=== PATIENT | male | born 1955 | race African-American/Black ===

== ENCOUNTER 2017-11-16 07:24 | Inpatient (IN) | payer OTHER ==
[~2017-11-16] VITALS: Ht 172.7 cm; Wt 93.4 kg
[~2017-11-16 07:24] MED LIST: BP pill; KEFLEX500 MG ORAL; NORCO 5-325 TA1 EAC1 ORAL; UNOBMED; [UNRECOGNIZED DRUG - OTHER]
--- NOTE | 2017-11-16 07:43 | Emergency Room Report ---
History of Present Illness General Chief Complaint: Pain Source: Patient, EMS Present Illness HPI Patient presents with complaints of general weakness reports that over the past several days has felt increasingly weak and fatigued Has had difficulty ambulating he does get short of breath patient also complains of increased swelling in both of his legs Reports being seen by primary physician who told him he needs to be seen by web publisher patient is also somewhat of a poor historian asking him regarding diuretics he reports no however he does have medications that are diuretics Denies any vomiting or diarrhea he also reports a fall previously Denies any focal weakness Allergies: Coded Allergies: No Known Allergies (Unverified , 02/21/16) Patient History Past Medical History: see triage record Pertinent Family History: none Reviewed Nursing Documentation: PMH: Agreed; PSxH: Agreed Nursing Documentation-PMH Past Medical History: No History, Except For Hx Cardiac Problems: Yes Hx Hypertension: Yes Hx Asthma: Yes Review of Systems All Other Systems: negative except mentioned in HPI Physical Exam Vital Signs Date Time Temp Pulse Resp B/P (MAP) Pulse Ox O2 Delivery O2 Flow Rate FiO2 11/16/17 07:20 96.6 95 20 145/89 95 Room Air 96.6 Sp02 EP Interpretation: reviewed, normal General Appearance: no apparent distress Head: normocephalic, atraumatic Eyes: bilateral eye PERRL ENT: hearing grossly normal, normal pharynx, TMs + canals normal, uvula midline Neck: full range of motion, supple, no meningismus, no bony tend Respiratory: no rhonchi, no respiratory distress, no retraction, no accessory muscle use, crackles - Fine crackles bilaterally Cardiovascular #1: normal peripheral pulses, regular rate, rhythm, no gallop, no JVD, no murmur Gastrointestinal: normal bowel sounds, non tender, no mass, no organomegaly, no guarding, no pulsatile mass, no rebound, other - Small umbilical hernia Genitourinary: no CVA tenderness Musculoskeletal: normal inspection Neurologic: oriented x3, responsive, wash driller III-XII nml as tested, motor strength/ tone normal, sensory intact Psychiatric: mood/affect normal Skin: other - Patient has extensive edema bilaterally Lymphatic: no adenopathy Medical Decision Making Diagnostic Impression: Primary Impression: CHF (congestive heart failure) ER Course Patient is a fairly complex patient with multiple differential to consideration including but not limited to cardiac cardiopulmonary and vascular emergencies Patient had extensive blood work and imaging obtained X-ray does show evidence of pulmonary congestion Patient clinically also shows acute CHF At this time requiring further inpatient care Labs Test 11/16/17 07:52 11/17/17 06:10 11/17/17 17:45 White Blood Count 13.8 K/UL (4.8-10.8) 14.0 K/UL (4.8-10.8) Red Blood Count 4.78 M/UL (4.70-6.10) 4.51 M/UL (4.70-6.10) Hemoglobin 11.1 G/DL (14.2-18.0) 11.2 G/DL (14.2-18.0) Hematocrit 36.0 % (42.0-52.0) 33.5 % (42.0-52.0) Mean Corpuscular Volume 75 FL (80-99) 74 FL (80-99) Mean Corpuscular Hemoglobin 23.3 PG (27.0-31.0) 24.9 PG (27.0-31.0) Mean Corpuscular Hemoglobin Concent 30.9 G/DL (32.0-36.0) 33.4 G/DL (32.0-36.0) Red Cell Distribution Width 15.9 % (11.6-14.8) 15.4 % (11.6-14.8) Platelet Count 308 K/UL (150-450) 253 K/UL (150-450) Mean Platelet Volume 6.1 FL (6.5-10.1) 6.4 FL (6.5-10.1) Neutrophils (%) (Auto) 78.3 % (45.0-75.0) 75.8 % (45.0-75.0) Lymphocytes (%) (Auto) 13.1 % (20.0-45.0) 12.3 % (20.0-45.0) Monocytes (%) (Auto) 7.3 % (1.0-10.0) 11.0 % (1.0-10.0) Eosinophils (%) (Auto) 0.1 % (0.0-3.0) 0.0 % (0.0-3.0) Basophils (%) (Auto) 1.2 % (0.0-2.0) 0.9 % (0.0-2.0) Sodium Level 132 MMOL/L (136-145) 132 MMOL/L (136-145) Potassium Level 3.5 MMOL/L (3.5-5.1) 3.3 MMOL/L (3.5-5.1) Chloride Level 97 MMOL/L (98-107) 95 MMOL/L (98-107) Carbon Dioxide Level 26 MMOL/L (21-32) 22 MMOL/L (21-32) Anion Gap 9 mmol/L (5-15) 15 mmol/L (5-15) Blood Urea Nitrogen 20 mg/dL (7-18) 30 mg/dL (7-18) Creatinine 1.4 MG/DL (0.55-1.30) 1.5 MG/DL (0.55-1.30) Estimat Glomerular Filtration Rate > 60 mL/min (>60) 57.1 mL/min (>60) Glucose Level 121 MG/DL (74-106) 98 MG/DL (74-106) Calcium Level 10.0 MG/DL (8.5-10.1) 9.5 MG/DL (8.5-10.1) Total Bilirubin 1.0 MG/DL (0.2-1.0) 1.5 MG/DL (0.2-1.0) Aspartate Amino Transf (AST/SGOT) 13 U/L (15-37) 15 U/L (15-37) Alanine Aminotransferase (ALT/SGPT) 14 U/L (12-78) 10 U/L (12-78) Alkaline Phosphatase 67 U/L (46-116) 60 U/L (46-116) Total Creatine Kinase 69 U/L (26-308) Creatine Kinase MB < 0.5 NG/ML (0.0-3.6) Creatine Kinase MB Relative Index Troponin I 0.000 ng/mL (0.000-0.056) Pro-B-Type Natriuretic Peptide 450 pg/mL (0-125) 206 pg/mL (0-125) Total Protein 9.8 G/DL (6.4-8.2) 9.3 G/DL (6.4-8.2) Albumin 3.3 G/DL (3.4-5.0) 2.9 G/DL (3.4-5.0) Globulin 6.5 g/dL 6.4 g/dL Albumin/Globulin Ratio 0.5 (1.0-2.7) 0.5 (1.0-2.7) Lipase 80 U/L (73-393) Iron Level 14 ug/dL (50-175) Total Iron Binding Capacity 263 ug/dL (250-450) Percent Iron Saturation 5 % (15-50) Unsaturated Iron Binding 249 ug/dL (112-346) Direct Bilirubin 0.8 MG/DL (0.0-0.3) Triglycerides Level 66 MG/DL (30-150) Cholesterol Level 87 MG/DL (< 200) LDL Cholesterol 41 mg/dL (<100) HDL Cholesterol 47 MG/DL (40-60) Cholesterol/HDL Ratio 1.9 (3.3-4.4) Thyroid Stimulating Hormone (TSH) 1.391 uiU/mL (0.358-3.740) Urine Color Yellow Urine Appearance Slightly cloudy Urine pH 5 (4.5-8.0) Urine Specific [place] 1.010 (1.005-1.035) Urine Protein 2+ (NEGATIVE) Urine Glucose (UA) Negative (NEGATIVE) Urine Ketones Negative (NEGATIVE) Urine Occult Blood 1+ (NEGATIVE) Urine Nitrite Negative (NEGATIVE) Urine Bilirubin Negative (NEGATIVE) Urine Urobilinogen 8 MG/DL (0.0-1.0) Urine Leukocyte Esterase 2+ (NEGATIVE) Urine RBC 0-2 /HPF (0 - 0) Urine WBC 2-4 /HPF (0 - 0) Urine Squamous Epithelial Cells Occasional /LPF Urine Amorphous Sediment Few /LPF (NONE) Urine Bacteria Few /HPF (NONE) Rhythm Strip Diag. Results EP Interpretation: yes Rate: 76 Rhythm: NSR, no PVC's, no ectopy Chest X-Ray Diagnostic Results Chest X-Ray Diagnostic Results : Chest X-Ray Ordered: Yes # of Views/Limited/Complete: 1 View Indication: Chest Pain EP Interpretation: Yes Interpretation: no consolidation, no effusion Last Vital Signs Date Time Temp Pulse Resp B/P (MAP) Pulse Ox O2 Delivery O2 Flow Rate FiO2 11/16/17 07:20 96.6 95 20 145/89 95 Room Air 96.6 Status: improved Disposition: ADMITTED INPATIENT Condition: Serious Katty Calvert DO Nov 16, 2017 07:43
[2017-11-16] MEDS ORDERED: AMLODIPINE BESY10 MG ORAL (07:54)
[2017-11-16] MEDS ORDERED: FERROUS SULFAT325 MG ORAL (07:54)
[2017-11-16] MEDS ORDERED: HYDROCHLOROTHIA25 MG ORAL (07:54)
[2017-11-16] MEDS ORDERED: PRAVASTATIN SOD20 M1 ORAL (07:54)
[2017-11-16] MEDS ORDERED: BENAZEPRIL HCL40 MG ORAL (07:54)
[2017-11-16 07:57] VITALS: BP 149/87
[2017-11-16 08:13] LABS: BASOPHILS % (AUTO) 1.2 % (0.0-2.0); EOSINOPHILS % (AUTO) 0.1 % (0.0-3.0); HEMOGLOBIN 11.1 G/DL (14.2-18.0); LYMPHOCYTES % (AUTO) 13.1 % (20.0-45.0); MEAN CORPUSCULAR VOLUME 75 FL (80-99); MONOCYTES % (AUTO) 7.3 % (1.0-10.0); NEUTROPHILS % (AUTO) 78.3 % (45.0-75.0); PLATELET COUNT 308 K/UL (150-450); RED BLOOD COUNT 4.78 M/UL (4.70-6.10); RED CELL DISTRIBUTION WIDTH 15.9 % (11.6-14.8); WHITE BLOOD COUNT 13.8 K/UL (4.8-10.8)
[2017-11-16 08:26] LABS: ANION GAP 9 mmol/L (5-15); BLOOD UREA NITROGEN 20 mg/dL (7-18); CARBON DIOXIDE 26 MMOL/L (21-32); CHLORIDE 97 MMOL/L (98-107); CREATININE 1.4 MG/DL (0.55-1.30); POTASSIUM 3.5 MMOL/L (3.5-5.1); SODIUM 132 MMOL/L (136-145)
[2017-11-16 08:39] LABS: ALANINE AMINOTRANSFERASE 14 U/L (12-78); ALBUMIN 3.3 G/DL (3.4-5.0); ALBUMIN/GLOBULIN RATIO 0.5 (1.0-2.7); ALKALINE PHOSPHATASE 67 U/L (46-116); ASPARTATE AMINO TRANSFERASE 13 U/L (15-37); CKMB < 0.5 NG/ML (0.0-3.6); CREATINE KINASE 69 U/L (26-308)
--- NOTE | 2017-11-16 08:53 | Diagnostic Imaging Report ---
Indication: Dyspnea Technique: XRAY Chest 1v Comparison: None Findings: Low lung volumes. Question borderline cardiomegaly and mild pulmonary vascular congestion. No definite focal airspace consolidation no large pleural effusion, no pneumothorax. There is degenerative change of the spine. No acute osseous abnormality appreciated. Impression: Limited exam of the lung volumes. Question mild cardiomegaly and pulmonary vascular congestion. Correlate clinically. No definite focal consolidation.
[2017-11-16 09:30] VITALS: BP 147/81
[2017-11-16 10:22] VITALS: BP 140/80
[2017-11-16] MEDS ORDERED: Milk of Magnesia 30ml Ud ORAL PRN (11:15)
[2017-11-16] MEDS ORDERED: HydrALAZINE 25mg tab ORAL PRN (11:15)
[2017-11-16] MEDS: Aspirin EC 81mg tab ORAL SCH (11:49)
[2017-11-16] MEDS: Metoprolol 25mg tab ORAL SCH ×2 (11:49→20:55)
[2017-11-16 12:00] VITALS: BP 127/79
[2017-11-16 16:00] VITALS: BP 151/62
[2017-11-16 20:00] VITALS: BP 156/83
[2017-11-16] MEDS: Heparin 5000 units/ml inj SUBQ SCH (20:58)
[2017-11-16] MEDS ORDERED: Zolpidem 5mg tab ORAL PRN (21:00)
[2017-11-17] VITALS (7 sets, daily range): BP systolic 99–139; BP diastolic 68–76
--- NOTE | 2017-11-17 02:30 | History and Physical Report ---
DATE OF ADMISSION: 11/16/2017 REASON FOR ADMISSION: Congestive heart failure. HISTORY OF PRESENT ILLNESS: This is a 62-year-old male with a history of hypertensive heart disease with congestive heart failure, who has had several days of increasing weakness, fatigue, shortness of breath, and leg swelling. He has been referred to a federal district clerk by his primary care physician, but has yet to make that appointment. He has been on diuretics as an outpatient, but has not improved. He was seen in the emergency room and based on the results of his diagnostic workup and failed outpatient management, hospitalization was initiated. PAST MEDICAL HISTORY: Includes hypertension, asthma, congestive heart failure, and osteoarthritis. ALLERGIES: None. MEDICATIONS: Prior to admission, reviewed and reconciled. FAMILY HISTORY: Not remarkable. SOCIAL HISTORY: Denies current smoking, alcohol, or substance abuse. REVIEW OF SYSTEMS: A 10-point review of systems performed. All systems negative other than noted above. PHYSICAL EXAMINATION: VITAL SIGNS: Afebrile, blood pressure 145/89, pulse 95, and respirations 20. HEENT: Conjunctiva pink. Sclerae are anicteric. Oropharynx clear. NECK: Supple. Jugular venous pressure elevated. LUNGS: With diminished breath sounds and few rales. CARDIAC: Regular rhythm and rate. Normal S1, S2 with a fourth heart sound and a 1/6 systolic apical murmur. ABDOMEN: Soft, nontender. No ascites. EXTREMITIES: With 1+ dependent edema bilaterally. Good distal pulses. NEUROLOGIC: Nonfocal. LABORATORY AND DIAGNOSTIC DATA: White count 13.8, hemoglobin 11.1. Sodium 132, potassium 3.5, bicarbonate 26, BUN 20, and creatinine 1.4. Troponin 0. Pro-natriuretic peptide 450. Albumin 3.3. EKG with sinus rhythm and nonspecific ST-T wave changes. Chest x-ray, cardiomegaly and mild pulmonary venous congestion. IMPRESSION: 1. Acute diastolic congestive heart failure. 2. Hypertensive heart disease. 3. Protein-calorie malnutrition. 4. History of bronchospastic lung disease. 5. Chronic kidney disease. 6. Leukocytosis, microcytosis. PLAN: 1. Cardiac monitoring. 2. Serial troponins. 3. Diuresis. 4. Optimization of cardiovascular and antihypertensive regimen. 5. Anemia panel. 6. Thyroid panel. 7. DVT prophylaxis. 8. Echocardiogram and venous duplex scan of the lower extremities. 9. Further recommendations will follow. Sunny Sharif M.D. DR: DONNA JOB#: [id number] CC:
[2017-11-17 07:20] LABS: BASOPHILS % (AUTO) 0.9 % (0.0-2.0); HEMATOCRIT 33.5 % (42.0-52.0); HEMOGLOBIN 11.2 G/DL (14.2-18.0); LYMPHOCYTES % (AUTO) 12.3 % (20.0-45.0); MEAN CORPUSCULAR VOLUME 74 FL (80-99); NEUTROPHILS % (AUTO) 75.8 % (45.0-75.0); PLATELET COUNT 253 K/UL (150-450); RED BLOOD COUNT 4.51 M/UL (4.70-6.10); RED CELL DISTRIBUTION WIDTH 15.4 % (11.6-14.8)
[2017-11-17 07:38] LABS: % IRON SATURATION 5 % (15-50); IRON 14 ug/dL (50-175); TOTAL IRON BINDING CAPACITY 263 ug/dL (250-450)
[2017-11-17 07:45] LABS: ALANINE AMINOTRANSFERASE 10 U/L (12-78); ALBUMIN 2.9 G/DL (3.4-5.0); ALBUMIN/GLOBULIN RATIO 0.5 (1.0-2.7); ALKALINE PHOSPHATASE 60 U/L (46-116); ANION GAP 15 mmol/L (5-15); ASPARTATE AMINO TRANSFERASE 15 U/L (15-37); BILIRUBIN,TOTAL 1.5 MG/DL (0.2-1.0); BLOOD UREA NITROGEN 30 mg/dL (7-18); CALCIUM 9.5 MG/DL (8.5-10.1); CARBON DIOXIDE 22 MMOL/L (21-32); CHLORIDE 95 MMOL/L (98-107); CHOLESTEROL 87 MG/DL (< 200); CREATININE 1.5 MG/DL (0.55-1.30); HDL CHOLESTEROL 47 MG/DL (40-60); POTASSIUM 3.3 MMOL/L (3.5-5.1); SODIUM 132 MMOL/L (136-145); TRIGLYCERIDES 66 MG/DL (30-150)
[2017-11-17 07:48] LABS: BILIRUBIN,DIRECT 0.8 MG/DL (0.0-0.3)
[2017-11-17] MEDS: Aspirin EC 81mg tab ORAL SCH (09:11)
[2017-11-17] MEDS: Metoprolol 25mg tab ORAL SCH ×2 (09:12→21:09)
[2017-11-17] MEDS: Heparin 5000 units/ml inj SUBQ SCH ×2 (09:14→21:13)
--- NOTE | 2017-11-17 10:29 | Diagnostic Imaging Report ---
Indication: Shortness of breath Technique: XRAY Chest 1v Comparison: 11/16/2017 Findings: Cardiomediastinal silhouette is stable. Atherosclerotic changes are seen. No new infiltrates are identified. Osseous structures are stable. Impression: No significant change from 11/16/2017.
[2017-11-17 18:00] LABS: BILIRUBIN, URINE NEGATIVE (NEGATIVE); GLUCOSE, URINE (UA) NEGATIVE (NEGATIVE); KETONES,URINE NEGATIVE (NEGATIVE); LEUKOCYTE ESTERASE ,URINE 2+ (NEGATIVE); NITRITE,URINE NEGATIVE (NEGATIVE); PH,URINE 5 (4.5-8.0); PROTEIN,URINE 2+ (NEGATIVE); UROBILINOGEN,URINE 8 MG/DL (0.0-1.0)
[2017-11-17 18:01] LABS: APPEARANCE,URINE SLIGHTLY CLOUDY; COLOR,URINE YELLOW
--- NOTE | 2017-11-17 20:15 | Progress Note ---
DATE: 11/17/2017 CARDIOLOGY AND INTERNAL MEDICINE PROGRESS NOTE SUBJECTIVE: The patient has no chest pain or shortness of breath. He notes some improvement in his legs swelling, but still feels his hands are swollen. He denies cough or congestion. He has had a low-grade fever. He does not note any change in bowel habits. OBJECTIVE: VITAL SIGNS: Blood pressure 111/68, pulse 78, respirations 18, and temperature 99.5. Earlier, blood pressure was 99/73 and oxygen saturation 96% to 98% on room air. NECK: Supple. No jugular venous distention. LUNGS: With few rales, but significantly clear. CARDIAC: Regular rhythm and rate. Normal S1, S2 with a fourth heart sound. ABDOMEN: Slightly distended, soft, and nontender. EXTREMITIES: No edema. LABORATORY DATA: Notable for sodium 132, potassium 3.3, BUN 30, and creatinine 1.5. Total iron is 14 with saturation 5%. Albumin 2.9. LDL cholesterol 41 and TSH 1.3. White count remains 14 and hemoglobin 11.2. Chest x-ray today reveals no acute process. IMPRESSION: 1. Low-grade fever with leukocytosis, but no obvious source of infection. 2. Severe iron deficiency with no signs of gastrointestinal bleeding. 3. Acute on chronic diastolic congestive heart failure, now compensated with BNP decreasing to 209. 4. Hypertensive heart disease now with lower range blood pressure readings. PLAN: 1. Hold additional diuretic. 2. Check urine studies. 3. Check stool occult blood. 4. Consider GI workup. 5. For further fever spikes, blood cultures will be obtained. 6. Not stable for discharge at this time. Sunny Sharif M.D. DR: DAVID JOB#: [id number] CC:
[2017-11-18] VITALS: BP 107/66
[2017-11-18 04:00] VITALS: BP 104/63
[2017-11-18 08:00] VITALS: BP 112/73
[2017-11-18] MEDS: Aspirin EC 81mg tab ORAL SCH (08:51)
[2017-11-18] MEDS: Metoprolol 25mg tab ORAL SCH ×2 (08:53→20:52)
[2017-11-18] MEDS: Heparin 5000 units/ml inj SUBQ SCH (08:56)
[2017-11-18 08:59] LABS: BASOPHILS % (AUTO) 0.7 % (0.0-2.0); EOSINOPHILS % (AUTO) 0.2 % (0.0-3.0); HEMATOCRIT 32.9 % (42.0-52.0); HEMOGLOBIN 10.4 G/DL (14.2-18.0); LYMPHOCYTES % (AUTO) 12.5 % (20.0-45.0); MEAN CORPUSCULAR VOLUME 75 FL (80-99); MONOCYTES % (AUTO) 11.4 % (1.0-10.0); NEUTROPHILS % (AUTO) 75.3 % (45.0-75.0); PLATELET COUNT 259 K/UL (150-450); RED BLOOD COUNT 4.39 M/UL (4.70-6.10); RED CELL DISTRIBUTION WIDTH 15.5 % (11.6-14.8); WHITE BLOOD COUNT 12.3 K/UL (4.8-10.8)
[2017-11-18 09:37] LABS: ANION GAP 14 mmol/L (5-15); BLOOD UREA NITROGEN 35 mg/dL (7-18); CALCIUM 9.5 MG/DL (8.5-10.1); CARBON DIOXIDE 24 MMOL/L (21-32); CHLORIDE 95 MMOL/L (98-107); CREATININE 1.6 MG/DL (0.55-1.30); POTASSIUM 3.3 MMOL/L (3.5-5.1); SODIUM 133 MMOL/L (136-145)
[2017-11-18 12:00] VITALS: BP 117/75
[2017-11-18 16:00] VITALS: BP 121/76
[2017-11-18] MEDS ORDERED: Heparin 25,000u/D5W 500ml 500 ML IV SCH ×2 (16:30)
[2017-11-18] MEDS ORDERED: Heparin 5000 units/ml inj IV SCH (16:30)
[2017-11-18] MEDS ORDERED: Sorbitol Solution UD 30ml ORAL ONE (17:00)
[2017-11-18 20:00] VITALS: BP 98/60
--- NOTE | 2017-11-18 20:15 | Progress Note ---
DATE: 11/18/2017 CARDIOLOGY AND INTERNAL MEDICINE PROGRESS NOTE SUBJECTIVE: The patient still has some shortness of breath, poor appetite, and weakness. A venous duplex scan was positive for acute DVT. REVIEW OF SYSTEMS: The patient states that he had a colonoscopy at least seven years ago. OBJECTIVE: VITAL SIGNS: Blood pressure 121/76, pulse 84, respirations 20, afebrile, and room air oxygen 95% to 99% saturation. LUNGS: Coarse breath sounds. No wheezing or rales. HEART: Regular rhythm and rate. Normal S1 and S2. ABDOMEN: Soft. EXTREMITIES: Trace edema. LABORATORY AND DIAGNOSTIC DATA: White count 12.3 and hemoglobin 10.4. Sodium 133, potassium 3.3, bicarbonate 24, BUN 35, creatinine 1.6, and magnesium 1.5. IMPRESSION: 1. Acute deep venous thrombosis, possible pulmonary embolism. 2. Hypokalemia. 3. Hyponatremia, dilutional. 4. Acute on chronic kidney injury worsening post diuresis. 5. Iron deficiency. 6. Microcytic anemia. 7. Moderate protein-calorie malnutrition. 8. Acute on chronic diastolic congestive heart failure, now compensated. 9. Hypomagnesemia. PLAN: 1. Full anticoagulation. 2. Bed rest. 3. GI evaluation for panendoscopy. 4. Iron replacement to follow. 5. Protein supplements. 6. Holding diuresis. 7. Respiratory hygiene. 8. Follow up stool occult blood test. Sunny Sharif M.D. DR: Tawana JOB#: [id number] CC:
[2017-11-18] MEDS ORDERED: Heparin 5000 units/ml inj IV ONE (23:30)
[2017-11-18] MEDS: Heparin 25,000u/D5W 500ml 500 ML IV SCH (23:49)
[2017-11-19] VITALS: BP 95/59
[2017-11-19 04:00] VITALS: BP 138/72
[2017-11-19] MEDS ORDERED: Bisacodyl EC 5mg tab ORAL SCH (06:00)
[2017-11-19 06:08] LABS: BASOPHILS % (AUTO) 0.9 % (0.0-2.0); EOSINOPHILS % (AUTO) 0.8 % (0.0-3.0); HEMATOCRIT 31.7 % (42.0-52.0); HEMOGLOBIN 10.7 G/DL (14.2-18.0); LYMPHOCYTES % (AUTO) 12.9 % (20.0-45.0); MEAN CORPUSCULAR VOLUME 74 FL (80-99); NEUTROPHILS % (AUTO) 77.5 % (45.0-75.0); PLATELET COUNT 237 K/UL (150-450); RED BLOOD COUNT 4.28 M/UL (4.70-6.10); RED CELL DISTRIBUTION WIDTH 15.4 % (11.6-14.8); WHITE BLOOD COUNT 9.8 K/UL (4.8-10.8)
[2017-11-19] MEDS: Heparin 25,000u/D5W 500ml 500 ML IV SCH (06:56)
[2017-11-19 08:00] VITALS: BP 101/64
[2017-11-19] MEDS ORDERED: Nulytely 4L ORAL ONE (08:00)
[2017-11-19] MEDS: Metoprolol 25mg tab ORAL SCH ×2 (09:17→21:51)
[2017-11-19] MEDS: Aspirin EC 81mg tab ORAL SCH (09:17)
[2017-11-19 09:47] LABS: ALANINE AMINOTRANSFERASE 20 U/L (12-78); ALBUMIN 2.5 G/DL (3.4-5.0); ALBUMIN/GLOBULIN RATIO 0.5 (1.0-2.7); ALKALINE PHOSPHATASE 67 U/L (46-116); ANION GAP 16 mmol/L (5-15); ASPARTATE AMINO TRANSFERASE 34 U/L (15-37); BILIRUBIN,TOTAL 0.7 MG/DL (0.2-1.0); BLOOD UREA NITROGEN 43 mg/dL (7-18); CALCIUM 8.9 MG/DL (8.5-10.1); CARBON DIOXIDE 21 MMOL/L (21-32); CHLORIDE 93 MMOL/L (98-107); CREATININE 1.5 MG/DL (0.55-1.30); POTASSIUM 3.4 MMOL/L (3.5-5.1); SODIUM 130 MMOL/L (136-145)
--- NOTE | 2017-11-19 09:51 | Cardiology Report ---
APPROVED REPORT EXAM: Two-dimensional and M-mode echocardiogram with Doppler and color Doppler. INDICATION Congestive Heart Failure M-Mode DIMENSIONS IVSd1.0 (0.7-1.1cm)Left Atrium (MM)4.0 (1.6-4.0cm) LVDd3.8 (3.5-5.6cm)Aortic Root3.3 (2.0-3.7cm) PWd0.7 (0.7-1.1cm)Aortic Cusp Exc.1.9 (1.5-2.0cm) LVDs1.7 (2.5-4.0cm) PWs1.8 cm Technically difficult study due to poor parasternal acoustical windows. Study quality precludes accurate assessment of regional wall motion. Normal left ventricular chamber size, systolic function and wall motion. Left ventricular ejection fraction estimated to be 60 %. No evidence of left ventricular hypertrophy. Anterior Echo-free space, may be due to pericardial fat or effusion. All other cardiac chamber sizes are within normal limits. Mild focal aortic valve sclerosis with adequate cusp excursion. Mildly thickened mitral valve leaflets with normal excursion. Mild mitral annulus and aortic root calcification. Pulmonic valve not well visualized. Normal tricuspid valve structure. IVC dilated at 2.2 cm and non-collapsing with respiration suggestive of increased RA pressure. A color flow and spectral Doppler study was performed and revealed: Mild to moderate aortic insufficiency. Trace mitral regurgitation. Mitral diastolic velocities suggest mild left ventricular diastolic dysfunction (Grade I). Trace tricuspid regurgitation. Tricuspid systolic velocities suggests peak right ventricular systolic pressure of 32 mmHg. No pulmonic regurgitation present.
[2017-11-19 12:00] VITALS: BP 121/84
--- NOTE | 2017-11-19 13:00 | Progress Note ---
DATE: 11/19/2017 CARDIOLOGY PROGRESS NOTE SUBJECTIVE: The patient feels better, less short of breath. No chest pain. No abdominal pain, nausea, or vomiting. PHYSICAL EXAMINATION: VITAL SIGNS: Blood pressure 101/64, pulse 90, respirations 20, and afebrile. NECK: Supple. LUNGS: Clear. CARDIAC: Regular rhythm and rate. Normal S1, S2 with a fourth heart sound. ABDOMEN: Soft. EXTREMITIES: No edema. LABORATORY DATA: Sodium 130, potassium 3.4, chloride 92, bicarb 21, BUN 43, and creatinine 1.5. Magnesium 2.2. Albumin 2.5. IMPRESSION: 1. Acute DVT. 2. Severe iron deficiency with anemia. 3. Hyponatremia. 4. Hypokalemia. 5. Hypochloremia. 6. Acute on chronic kidney injury. 7. Tfekeyys-js-tgccde protein-calorie malnutrition. 8. Acute on chronic diastolic congestive heart failure, now compensated. PLAN: IV heparin. all drips and normal saline. Fluid restrict. Replace potassium. Bed rest. Panendoscopy schedule. Iron replacement to follow. Sunny Sharif M.D. DR: LINETTE JOB#: [id number] CC:
[2017-11-19 16:00] VITALS: BP 109/71
[2017-11-19] MEDS ORDERED: Sorbitol Solution UD 30ml ORAL SCH ×2 (17:45→21:00)
[2017-11-19 20:00] VITALS: BP 114/72
--- NOTE | 2017-11-19 20:51 | General Progress Note ---
Assessment/Plan Assessment/Plan GI CONSULT ATSP for anemia Dictated Will arrange for EGD/Colon in am Thank you Noni Schwartz MD Subjective Allergies: Coded Allergies: No Known Allergies (Unverified , 02/21/16) Objective Last 24 Hour Vital Signs Date Time Temp Pulse Resp B/P (MAP) Pulse Ox O2 Delivery O2 Flow Rate FiO2 11/19/17 16:00 89 11/19/17 16:00 99.3 88 18 109/71 96 Room Air 99.3 11/19/17 12:00 97.0 100 19 121/84 95 Room Air 97.0 11/19/17 12:00 71 11/19/17 09:17 90 101/64 11/19/17 09:00 101/64 11/19/17 08:00 97.7 90 18 101/64 94 Room Air 97.7 11/19/17 08:00 90 11/19/17 04:00 93 11/19/17 04:00 98.4 69 20 138/72 95 Room Air 98.4 11/19/17 01:45 98.6 11/19/17 00:46 98.6 11/19/17 00:00 99.7 92 22 95/59 98 Room Air 99.7 11/19/17 00:00 96 11/18/17 20:52 92 98/60 Intake and Output 11/18/17 11/19/17 19:00 07:00 Intake Total 400 ml 500 ml Output Total 2 ml Balance 400 ml 498 ml Intake Oral 400 ml 500 ml Stool Total 2 ml Laboratory Tests 11/18/17 22:10: Activated Partial Thromboplast Time 59H 11/19/17 05:30: Activated Partial Thromboplast Time 83H, White Blood Count 9.8, Red Blood Count 4.28L, Hemoglobin 10.7L, Hematocrit 31.7L, Mean Corpuscular Volume 74L, Mean Corpuscular Hemoglobin 24.9L, Mean Corpuscular Hemoglobin Concent 33.7, Red Cell Distribution Width 15.4H, Platelet Count 237, Mean Platelet Volume 6.3L, Neutrophils (%) (Auto) 77.5H, Lymphocytes (%) (Auto) 12.9L, Monocytes (%) (Auto ) 8.0, Eosinophils (%) (Auto) 0.8, Basophils (%) (Auto) 0.9, Sodium Level 130L, Potassium Level 3.4L, Chloride Level 93L, Carbon Dioxide Level 21, Anion Gap 16H , Blood Urea Nitrogen 43H, Creatinine 1.5H, Estimat Glomerular Filtration Rate 57.1, Glucose Level 118H, Calcium Level 8.9, Magnesium Level 2.2, Total Bilirubin 0.7, Aspartate Amino Transf (AST/SGOT) 34, Alanine Aminotransferase ( ALT/SGPT) 20, Alkaline Phosphatase 67, Total Protein 8.0, Albumin 2.5L, Globulin 5.5, Albumin/Globulin Ratio 0.5L Height (Feet): 5 Height (Inches): 8.00 Weight (Pounds): 210 LETY SCHWARTZ Nov 19, 2017 20:51
[2017-11-19] MEDS ORDERED: Lactulose 20gm/30ml UDC ORAL SCH (21:30)
[2017-11-20] VITALS (12 sets, daily range): BP systolic 68–113; BP diastolic 47–74
[2017-11-20] MEDS ORDERED: Sorbitol Solution UD 30ml ORAL SCH
[2017-11-20] MEDS ORDERED: Lactulose 20gm/30ml UDC ORAL SCH
--- NOTE | 2017-11-20 01:15 | Consultation ---
DATE OF CONSULTATION: 11/19/2017 GASTROENTEROLOGY CONSULTATION CONSULTING PHYSICIAN: Nydia Schwartz M.D. REFERRING PHYSICIAN: Sunny Sharif M.D. CHIEF COMPLAINT: I was asked to see this patient by Dr. Sunny Sharif for evaluation of severe anemia. HISTORY OF PRESENT ILLNESS: The patient is a pleasant 62-year-old man with history of hypertension and hypertensive heart disease, who came into the hospital due to fatigue, weakness, and shortness of breath. Evaluation as an inpatient has shown severe anemia which is microcytic and therefore, this consultation was generated. The patient states that his last colonoscopy was about six to seven years ago and he is not sure where it was done. He denies any abdominal pain, nausea, vomiting, diarrhea, constipation, or hematochezia. Family history is negative for gastrointestinal disorders or malignancies. PAST MEDICAL HISTORY: Remarkable for congestive heart failure, hypertension, asthma, and osteoarthritis. MEDICATIONS: See the chart list for details. ALLERGIES: None. SOCIAL HISTORY: The patient does not smoke or drink alcohol. FAMILY HISTORY: Negative. REVIEW OF SYSTEMS: Otherwise negative. PHYSICAL EXAMINATION: GENERAL: This is a pleasant man, seen in his room. HEENT: Normocephalic and atraumatic. Sclerae anicteric. Oropharynx clear. NECK: Supple. CHEST: Clear to auscultation. CARDIOVASCULAR: Regular rate. ABDOMEN: Soft with a supraumbilical nodule which was mildly tender and resembled the intraabdominal wall hernia. EXTREMITIES: Revealed no edema. LABORATORY DATA: Noted. ASSESSMENT: This patient presents with significant anemia of unclear etiology. Differential diagnosis would include chronic blood loss either from the upper or lower GI tract. In addition, the patient has some mild elevation in bilirubin which has improved now. With a CT scan, we can check both the gallbladder and liver area as well as the anterior abdominal wall and this can be done after the completion of the GI endoscopy procedure. RECOMMENDATIONS: 1. Begin GI tract lavage. 2. Endoscopy and colonoscopy tomorrow. 3. CT scan to follow to check the anterior abdominal wall hernia as well as to check the biliary tree. Thank you for asking me to participate in the care of this patient. Nydia Schwartz M.D. DR: José JOB#: [id number] CC: JEREMIAH
[2017-11-20] MEDS ORDERED: NS 500ML IV ONE (07:50)
[2017-11-20] MEDS ORDERED: Propofol 200mg/20ml IV ONE (08:00)
[2017-11-20] MEDS ORDERED: NS 500ML ONE (08:00)
--- NOTE | 2017-11-20 08:11 | General Progress Note ---
Assessment/Plan Assessment/Plan Assessment - Microcytic anemia - N/V with GI preparation - DVT - off heparin gtt overnight - likely anterior abd wall hernia Recommendations - NPO - EGD, possible colonoscopy this am - monitor labs - Heparin on hold POST PROCEDURE ADDENDUM EGD: - 800 cc residual bilious liquid removed from stomach - 3-4 cm Hiatal hernia - proximal gastritis - random biopsies of duodenum and fundus sent to path - no ulcer or malignancy identified Flexible sigmoidoscopy - exam to 40 cm without mass lesions - diverticulosis seen - poor preparation precluded full colonoscopy Recommendations - keep NPO - Restart Heparin - CT scan Subjective HEENT: Denies: double vision Allergies: Coded Allergies: No Known Allergies (Unverified , 02/21/16) Subjective above noted unable to tolerate golytely due to vomiting given sorbitol and lactulose refused enema this am initially refused going down to GI lab then later agreed to proceed understands stools not clear - may not be able to do colon Objective Last 24 Hour Vital Signs Date Time Temp Pulse Resp B/P (MAP) Pulse Ox O2 Delivery O2 Flow Rate FiO2 11/20/17 04:00 97.0 85 20 96/56 97 Room Air 97.0 11/20/17 03:47 97 11/20/17 00:00 98.2 98 20 98/63 97 Room Air 98.2 11/19/17 23:40 96 11/19/17 21:51 102 114/72 11/19/17 20:00 99.0 102 18 114/72 96 Room Air 99.0 11/19/17 19:40 102 11/19/17 16:00 89 11/19/17 16:00 99.3 88 18 109/71 96 Room Air 99.3 11/19/17 12:00 97.0 100 19 121/84 95 Room Air 97.0 11/19/17 12:00 71 11/19/17 09:17 90 101/64 11/19/17 09:00 101/64 Intake and Output 11/19/17 11/20/17 19:00 07:00 Intake Total 590.218 ml Output Total 1000 ml Balance 590.218 ml -1000 ml Intake Oral 250 ml IV Total 340.218 ml Emesis 1000 ml # Voids 2 1 # Bowel Movements 1 Laboratory Tests 11/20/17 04:00: Activated Partial Thromboplast Time 32 Height (Feet): 5 Height (Inches): 8.00 Weight (Pounds): 210 Objective WDWN NCAT CTA RRR Soft obese stomach, (+) softer periumbilical nodule no edema nonfocal LETY WIGGINS Nov 20, 2017 08:11
--- NOTE | 2017-11-20 08:18 | Anethesia Preoperative Eval ---
Anesthesia Pre-op PMH/ROS General Date of Evaluation: Nov 20, 2017 Time of Evaluation: 07:50 Anesthesiologist: Lucia ASA Score: ASA 3 Mallampati Score Class I : Soft palate, uvula, fauces, pillars visible Class II: Soft palate, uvula, fauces visible Class III: Soft palate, base of uvula visible Class IV: Only hard plate visible Mallampati Classification: Class II Surgeon: Lana Diagnosis: Abdominal pain, GI bleed Surgical Procedure: EGD, colonoscopy Family History: no anesthesia problems Allergies: Coded Allergies: No Known Allergies (Unverified , 02/21/16) Medications: see eMAR Past Medical History Cardiovascular: Reports: HTN, CAD, other - CHF Pulmonary: Reports: asthma; Denies: COPD, CHONG, other Gastrointestinal/Genitourinary: Reports: CRI; Denies: GERD, ESRD, other Neurologic/Psychiatric: Denies: dementia, CVA, depression/anxiety, TIA, other Endocrine: Denies: DM, hypothyroidism, steroids, other HEENT: Denies: cataract (L), cataract (R), glaucoma, [place] (L), [place] (R), other Hematology/Immune: Reports: anemia, DVT Musculoskeletal/Integumentary: Reports: OA PMH Narrative: HTN, CHF, diastolic dysfunction, bronchospasm, OA, CRI Anesthesia Pre-op Phys. Exam Physician Exam Last Vital Signs Date Time Temp Pulse Resp B/P (MAP) Pulse Ox O2 Delivery O2 Flow Rate FiO2 11/20/17 04:00 97.0 85 20 96/56 97 Room Air 97.0 Constitutional: NAD Neurologic: CN 2-12 intact Cardiovascular: RRR, no M/R/G Respiratory: CTA Gastrointestinal: S/NT/ND Airway Exam Mallampati Score: Class II MO: full ROM: full Teeth: missing Anesthesia Pre-op A/P Labs Coagulation Test 11/20/17 04:00 Activated Partial Thromboplast Time 32 SEC (23-33) Studies Pre-op Studies: EKG - Sinus tach, possible IWMI Risk Assessment & Plan Assessment: Class 3 male for EGD and colonoscopy Plan: GA, TIVA Status Change Before Surgery: No Pre-Antibiotics Drug: None Stevan Myers MD Nov 20, 2017 08:18
--- NOTE | 2017-11-20 08:19 | Immediate Post-Op Evaluation ---
Immediate Post-Op Evalulation Immediate Post-Op Evalulation Procedure: EGD, colonoscopy Date of Evaluation: Nov 20, 2017 Time of Evaluation: 08:57 IV Fluids: 400 Blood Pressure Systolic: 78 Blood Pressure Diastolic: 52 Pulse Rate: 103 Respiratory Rate: 17 O2 Sat by Pulse Oximetry: 100 Pain Score (1-10): 0 Nausea: No Vomiting: No Complications No complication Patient Status: awake, patent, none Hydration Status: adequate Stevan Myers MD Nov 20, 2017 08:19
[2017-11-20] MEDS ORDERED: fentaNYL 100 mcg/2 mL IV PRN (08:30)
[2017-11-20] MEDS: Metoprolol 25mg tab ORAL SCH ×2 (09:00→22:24)
[2017-11-20] MEDS: Pantoprazole Inj IVP SCH (10:20)
[2017-11-20] MEDS: Aspirin EC 81mg tab ORAL SCH (10:20)
[2017-11-20] MEDS: D5 1/2NS 1,000 ML IV SCH (10:21)
[2017-11-20] MEDS ORDERED: Heparin 25,000u/D5W 500ml 500 ML IV SCH (11:00)
--- NOTE | 2017-11-20 15:54 | Diagnostic Imaging Report ---
Indication: Abdominal tenderness and abdominal pain Technique: Spiral acquisitions obtained through the abdomen and pelvis. Patient given oral contrast. No IV contrast utilized, per referring physician request.. Multiplanar reconstructions were generated. Total dose length product 911.51 mGycm. CTDIvol(s) 17.73 mGy. Dose reduction achieved using automated exposure control Comparison: None Findings: There is diffuse mild to moderate dilatation of the small bowel, which is gas and fluid filled. The narrowing extends to the terminal ileum, where there is a focal narrowing of the terminal ileum with suggestion of a slight kink and slight swirling of the mesentery. Ingested contrast has traversed only a small percentage of the stomach and proximal small bowel. The appendix is normal. The colon is gas and fluid filled, upper limits of normal in caliber but not frankly distended proximally, nondistended distal to the splenic flexure. What appears to be scar tissue is seen in the left inguinal region. There is a small fat-containing umbilical hernia., As well as a small fat-containing ventral hernia cephalad to the umbilicus. There is colonic diverticulosis. No evidence of diverticulitis. The appendix is normal. No free or loculated intraperitoneal air or fluid is evident. Lack of IV contrast limits assessment of the solid organs. The liver is grossly unremarkable. The gallbladder is nondistended, contains a gallstone within the fundus. No biliary ductal dilatation. A few calcifications are seen in the pancreatic head. The spleen, adrenals, kidneys are unremarkable. No retroperitoneal or mesenteric mass or adenopathy. No pelvic mass or adenopathy. The bladder is nondistended. Reticular opacities are seen in the inferior lingula. An irregular nodular opacity with surrounding groundglass opacity is seen in the left lower lobe, measuring approximately 2 cm in diameter. The bones demonstrate a wedge/burst compression fracture deformity of the L1 vertebral body, with approximately 6 mm of posterior retropulsion of the superior aspect of the posterior wall and approximately 60% height loss. There is also a superior endplate compression fracture deformity of the L2 vertebral body. The bones demonstrate degenerative spondylosis changes. Impression: Dilated fluid-filled small bowel, extending all way to the terminal ileum. Kinking and narrowing of the terminal ileum just proximal to the ileocecal valve is suspicious for small bowel obstruction at the level of the terminal ileum, possibly due to an adhesion or less likely a tiny internal hernia. Given the diffuse involvement of the small bowel other than the last few centimeters, findings could also be due to ileus, however Gas and fluid filled nondistended colon. Reportedly, patient has history of recent colonoscopy, so this finding could be related to such Colonic diverticulosis. No evidence of diverticulitis 2 cm irregular nodular opacity with surrounding groundglass opacity in the left lower lobe. This could be postinflammatory, but does raise the possibility of pulmonary neoplasm. Follow-up chest CT is recommended Other reticular opacities seen within the inferior lingula, could be postinflammatory or could indicate acute inflammation L1 wedge/burst compression fracture deformity with posterior retropulsion. Age of this is indeterminate. Consider MRI for further evaluation if symptomatic L2 vertebral body superior endplate compression fracture deformity, likewise age indeterminate. Consider MRI if indicated Cholelithiasis Incidental findings degenerative lumbar spondylosis, small fat-containing ventral and umbilical hernias Critical value findings discussed by phone with Dr. Sharif at the time of interpretation The CT scanner at [facility] is accredited by the [employer] and the scans are performed using protocols designed to limit radiation exposure to as low as reasonably achievable to attain images of sufficient resolution adequate for diagnostic evaluation.
[2017-11-20] MEDS ORDERED: D5 1/2NS 1000ml IV ONE (17:39)
[2017-11-20] MEDS ORDERED: Heparin 5000 units/ml inj IV SCH (17:45)
[2017-11-20] MEDS: Heparin 25,000u/D5W 500ml 500 ML IV SCH ×2 (18:20→21:25)
--- NOTE | 2017-11-20 18:23 | Consultation ---
History of Present Illness General Date patient seen: Nov 20, 2017 Chief Complaint: Pain Reason for Consultation: abdominal pain/n/v, ileus vs sbo Present Illness HPI 62 year old male with multiple medical comorbidities as noted below presented with worsening condition and CHF. Since has been doing well but began to develop abdominal discomfort with nausea and emesis. States pain generalized abdominal cramping discomfort that began today and began to have bilious emesis this morning. Had EGD with evacuation of 800cc bilious fluid, no ulcer noted, small hiatal hernia noted. After had CT scan which demonstrated mild to moderate small bowel dilation with "swirl"/ transition at distal Terminal ileum suggestive of bowel obstruction vs ileus. Surgery called to evaluate. patient seen, chart reviewed, patient examined. no prior abdominal surgery Allergies: Coded Allergies: No Known Allergies (Unverified , 02/21/16) Medication History Scheduled Amlodipine Besylate* (Amlodipine Besylate*), 10 MG ORAL DAILY, (Reported) Benazepril Hcl* (Benazepril Hcl*), 40 MG ORAL DAILY, (Reported) Cephalexin* (Keflex*), 500 MG ORAL EVERY 6 HOURS Ferrous Sulfate* (Ferrous Sulfate*), 325 MG ORAL DAILY, (Reported) Hydrochlorothiazide* (Hydrochlorothiazide*), 25 MG ORAL DAILY, (Reported) Pravastatin Sod* (Pravastatin Sod*), 40 MG ORAL BEDTIME, (Reported) Scheduled PRN Hydrocodone Bit/Acetaminophen 5-325* (Felton 5-325 Tablet*), 1 TAB ORAL Q4H PRN for For Pain Miscellaneous Medications Unable to Obtain Medications (Unable To Obtain Meds), (Reported) [BP pill], (Reported) [asthma medicine], (Reported) Patient History History Provided By: Patient, Medical Record, PMD Healthcare decision maker Resuscitation status Full Code Advanced Directive on File No Past Medical/Surgical History Past Medical/Surgical History: (1) Ileus (2) Shoulder pain, right (3) Proximal humeral fracture (4) UTI (urinary tract infection) (5) Compression fracture (6) CHF (congestive heart failure) Review of Systems All Other Systems: negative except mentioned in HPI Physical Exam General Appearance: no apparent distress, alert Lines, tubes and drains: peripheral HEENT: normocephalic, mucous membranes moist Neck: normal inspection Respiratory/Chest: normal breath sounds, no respiratory distress, no accessory muscle use Cardiovascular/Chest: normal peripheral pulses Abdomen: soft, distended, tender, hernia, other - soft, distended, mild generalized tenderness, no rebound, no guarding, reducible umbilial hernia, no notable inguinal hernia Skin Exam: normal pigmentation Neurologic: alert, oriented x 3, responsive Last 24 Hour Vital Signs Date Time Temp Pulse Resp B/P (MAP) Pulse Ox O2 Delivery O2 Flow Rate FiO2 11/20/17 16:00 87 11/20/17 16:00 97.5 86 20 113/74 97 Room Air 97.5 11/20/17 15:56 97.0 11/20/17 12:00 87 11/20/17 12:00 97.0 82 20 99/65 97 Room Air 97.0 11/20/17 10:57 44 11/20/17 09:55 97.0 84 20 95/53 97 Room Air 97.0 11/20/17 09:29 97.8 90 25 99/62 97 Room Air 97.8 11/20/17 09:15 89 24 94/59 96 Room Air 11/20/17 09:05 98 27 89/62 98 Room Air 11/20/17 09:00 102 27 87/57 100 Simple Mask 6.0 11/20/17 09:00 95/53 11/20/17 09:00 84 95/53 11/20/17 09:00 17 100 11/20/17 08:55 98 27 77/52 100 Simple Mask 6.0 11/20/17 08:47 98.0 94 25 68/47 100 Simple Mask 6.0 98.0 11/20/17 08:00 89 11/20/17 04:00 97.0 85 20 96/56 97 Room Air 97.0 11/20/17 03:47 97 11/20/17 00:00 98.2 98 20 98/63 97 Room Air 98.2 11/19/17 23:40 96 11/19/17 21:51 102 114/72 11/19/17 20:00 99.0 102 18 114/72 96 Room Air 99.0 11/19/17 19:40 102 Intake and Output 11/19/17 11/20/17 19:00 07:00 Intake Total 590.218 ml Output Total 1000 ml Balance 590.218 ml -1000 ml Intake Oral 250 ml IV Total 340.218 ml Emesis 1000 ml # Voids 2 1 # Bowel Movements 1 Laboratory Tests Test 11/20/17 04:00 11/20/17 17:00 Activated Partial Thromboplast Time 32 SEC (23-33) 50 SEC (23-33) H Height (Feet): 5 Height (Inches): 8.00 Weight (Pounds): 211 Medications Current Medications Medications (Trade) Dose Ordered Sig/Edi Route PRN Reason Start Time Stop Time Status Last Admin Dose Admin Acetaminophen (Tylenol) 650 mg Q4H PRN ORAL Mild Pain/Temp > 100.5 11/16/17 11:15 12/16/17 11:14 11/20/17 15:56 Aspirin (Ecotrin) 81 mg DAILY ORAL 11/16/17 11:15 12/16/17 11:14 11/20/17 10:20 Benazepril HCl (Lotensin) 40 mg DAILY ORAL 11/16/17 11:30 12/16/17 11:29 11/18/17 08:52 Dextrose/Sodium Chloride 1,000 ml @ 75 mls/hr [id number] IV 11/20/17 09:00 12/20/17 08:59 11/20/17 10:21 Heparin Sodium/ Dextrose 500 ml @ 45.363 mls/ hr adjust per protocol IV 11/20/17 17:45 12/20/17 17:44 Hydralazine HCl (Apresoline) 25 mg Q6H PRN ORAL SBP above 160 11/16/17 11:15 12/16/17 11:14 Magnesium Hydroxide (Mom) 30 ml DAILYPRN PRN ORAL Constipation 11/16/17 11:15 12/16/17 11:14 Metoprolol Tartrate (Lopressor) 25 mg Q12HR ORAL 11/16/17 11:30 12/16/17 11:29 11/19/17 21:51 Pantoprazole (Protonix) 40 mg DAILY IVP 11/20/17 09:00 12/20/17 08:59 11/20/17 10:20 Pravastatin Sodium (Pravachol) 40 mg BEDTIME ORAL 11/16/17 21:00 12/16/17 20:59 11/19/17 21:51 Zolpidem Tartrate (Ambien) 5 mg HSPRN PRN ORAL Insomnia 11/16/17 21:00 11/23/17 20:59 Assessment/Plan Problem List: (1) Ileus Assessment & Plan: 62 year old male with ileus vs SBO. afebrile, HD stable, labs reviewed. CT as noted in HPI. Exam as above. fortunately currently stable. possible ileus but concerning radiographic imaging of swirl and transition point near terminal ileus. patient with virgin abdomen. Will start with conservative management and monitor closely NPO with IV fluids NG tube inserted at bedside AM KUB serial abdominal exams. if does not improve may need surgery. will follow with recs. thank you for this consultation. ICD Codes: K56.7 - Ileus, unspecified SNOMED: [id number] Status: stable Jg Guy Nov 20, 2017 18:23
--- NOTE | 2017-11-20 18:30 | Procedure Note ---
DATE OF PROCEDURE: 11/20/2017 GASTROENTEROLOGY PROCEDURE REPORT PROCEDURE: Upper gastrointestinal endoscopy with biopsy as well as attempted colonoscopy resulting in a flexible sigmoidoscopy. SURGEON: Nydia Schwartz M.D. ANESTHESIA: Please see the separate anesthesiologist notes for details. PRE-ENDOSCOPIC DIAGNOSIS: Microcytic anemia. POST-ENDOSCOPIC DIAGNOSES: 1. Significant gastric residual of clear bilious fluid amounting up to about 800 mL, which was aspirated. 2. 3 to 4 cm hiatal hernia. 3. Possible mildly erosive gastritis in the fundus of the stomach, status post biopsy. 4. Status post random biopsy of the duodenum. 5. Poor colonic preparation precluding advancement beyond 40 cm, which was estimated to be the descending colon. DESCRIPTION OF PROCEDURE: The procedure, its risks, indications, alternatives, and possible complications including, but not limited to bleeding, infection, perforation, , and anesthesia complications were explained to the patient and an informed consent was obtained. The diagnostic upper endoscope was introduced into the oropharynx and advanced to the duodenum. The gastric cavity was noted to be filled with a thin bilious liquid, which was aspirated. After completion of that procedure, the colonoscope was introduced into the rectum after rectal exam was done and advanced to approximately 40 cm. At this point, poor colonic preparation precluded further advancement. Examination findings were as listed above. Most notably, there was no evidence of malignancy or masses or ulcerations or any other abnormalities that would explain the patient's microcytic anemia. RECOMMENDATIONS: 1. Follow up biopsy results. 2. Keep the patient NPO. 3. IV fluids. 4. Proton pump inhibitor. 5. CT Scan of the abdomen and pelvis. Thank you for asking me to participate in the care of this patient. Nydia Schwartz M.D. DR: LUCINDA JOB#: [id number] CC:
[2017-11-21] VITALS: BP 98/54
[2017-11-21] MEDS: D5 1/2NS 1,000 ML IV SCH ×2 (00:15→11:46)
--- NOTE | 2017-11-21 02:00 | Progress Note ---
DATE: 11/20/2017 CARDIOLOGY AND INTERNAL MEDICINE PROGRESS NOTE SUBJECTIVE: The patient's condition has deteriorated. He underwent upper GI endoscopy and was found to have gastric residual and hiatal hernia with gastritis. A colonoscopy could not be performed due to poor colonic prep and difficult advancement beyond 40 cm. The patient was noted to have some signs of small bowel obstruction and possible small bowel mass at the region of the terminal ileum. OBJECTIVE: LUNGS: With diminished breath sounds. CARDIAC: Regular rhythm and rate. Normal S1, S2. ABDOMEN: Soft. EXTREMITIES: No edema. IMPRESSION: 1. Iron-deficiency anemia. 2. Acute deep venous thrombosis. 3. Bowel obstruction. 4. Possible obstructing mass. PLAN: NPO. IV fluids. Hold anticoagulation for now pending stated diagnostic workup and possible surgical intervention. Bed rest. Sunny Sharif M.D. DR: Sommer JOB#: [id number] CC:
[2017-11-21] MEDS: Heparin 25,000u/D5W 500ml 500 ML IV SCH ×2 (02:42→13:49)
[2017-11-21 04:00] VITALS: BP 130/70
[2017-11-21 08:02] VITALS: BP_SYST 117; BP_SYST 120; BP_DIAS 70
[2017-11-21] MEDS: Metoprolol 25mg tab ORAL SCH ×2 (08:25→20:37)
[2017-11-21] MEDS: Pantoprazole Inj IVP SCH (08:25)
--- NOTE | 2017-11-21 08:50 | Diagnostic Imaging Report ---
. Indication: NG tube placement Technique: Portable supine view of the abdomen Comparison: CT abdomen 11/20/2013 FINDINGS/IMPRESSION: 1. NG tube courses along the upper aspect of the abdomen, likely within the stomach. Correlate with clinical exam. If there is clinical concern for malpositioning recommend tube advancement and repeat imaging, as the tube skirts along the along the undersurface of the cardiomediastinal silhouette. 2. Numerous dilated air-filled small bowel and large bowel loops concerning for ileus or degree of small bowel obstruction, similar to findings of prior CT. 3. Calcified gallstone noted in the right upper quadrant, similar to findings of prior CT. 4. Degenerative changes of the spine with age indeterminate vertebral body compression fractures, also previously described. This corresponds with the statrad preliminary report.
[2017-11-21 09:07] LABS: BASOPHILS % (AUTO) 1.3 % (0.0-2.0); EOSINOPHILS % (AUTO) 2.1 % (0.0-3.0); HEMATOCRIT 32.7 % (42.0-52.0); HEMOGLOBIN 10.3 G/DL (14.2-18.0); LYMPHOCYTES % (AUTO) 13.9 % (20.0-45.0); MEAN CORPUSCULAR VOLUME 73 FL (80-99); MONOCYTES % (AUTO) 11.5 % (1.0-10.0); NEUTROPHILS % (AUTO) 71.2 % (45.0-75.0); PLATELET COUNT 246 K/UL (150-450); RED BLOOD COUNT 4.46 M/UL (4.70-6.10); RED CELL DISTRIBUTION WIDTH 15.2 % (11.6-14.8); WHITE BLOOD COUNT 8.7 K/UL (4.8-10.8)
[2017-11-21 09:26] LABS: ALANINE AMINOTRANSFERASE 17 U/L (12-78); ALBUMIN 2.7 G/DL (3.4-5.0); ALBUMIN/GLOBULIN RATIO 0.4 (1.0-2.7); ALKALINE PHOSPHATASE 69 U/L (46-116); ANION GAP 16 mmol/L (5-15); ASPARTATE AMINO TRANSFERASE 24 U/L (15-37); BILIRUBIN,TOTAL 0.7 MG/DL (0.2-1.0); BLOOD UREA NITROGEN 61 mg/dL (7-18); CALCIUM 9.1 MG/DL (8.5-10.1); CARBON DIOXIDE 23 MMOL/L (21-32); CHLORIDE 91 MMOL/L (98-107); CREATININE 2.6 MG/DL (0.55-1.30); POTASSIUM 2.8 MMOL/L (3.5-5.1); SODIUM 129 MMOL/L (136-145)
--- NOTE | 2017-11-21 11:52 | Diagnostic Imaging Report ---
Indication: Abdominal pain Technique: Portable supine views of the abdomen Comparison: Abdominal radiograph and CT of the abdomen 11/16/2013. Findings: Nasogastric tube tip likely coiled in the proximal stomach. Limited evaluation for free intraperitoneal air given lack of erect view. No definite evidence of free intraperitoneal air. Number and degree of distention of small bowel loops is slightly decreased compared to the prior exam. No acute osseous abnormality is seen. There is atelectasis in the lung bases. IMPRESSION: Dilated air-filled small and large bowel loops persists, although number and degree of distention of loops is slightly decreased compared to the prior exam.
[2017-11-21 11:53] VITALS: BP 105/91
--- NOTE | 2017-11-21 14:39 | General Surgery Progress Note ---
General Surgery-Progress Note Subjective Symptoms: improved Additional Comments feels somewhat better. no n/v. ng tube output minimal. passing flatus and had some loose BM today. Objective Last 24 Hour Vital Signs Date Time Temp Pulse Resp B/P (MAP) Pulse Ox O2 Delivery O2 Flow Rate FiO2 11/21/17 11:53 97.2 74 18 105/91 97 Room Air 97.2 11/21/17 11:34 76 11/21/17 08:25 80 117/70 11/21/17 08:24 117/70 11/21/17 08:03 86 11/21/17 08:02 97.2 80 18 117/70 97 Room Air 97.2 11/21/17 04:00 81 11/21/17 04:00 97.2 72 18 130/70 97 Room Air 97.2 11/21/17 00:00 86 11/21/17 00:00 97.2 90 17 98/54 94 Room Air 97.2 11/20/17 22:24 96 104/62 11/20/17 21:00 98.1 96 20 104/62 95 Room Air 98.1 11/20/17 20:00 98 11/20/17 16:00 87 11/20/17 16:00 97.5 86 20 113/74 97 Room Air 97.5 11/20/17 15:56 97.0 I&O Intake and Output 11/20/17 11/21/17 19:00 07:00 Intake Total 1275 ml 1303.392 ml Output Total 800 ml 225 ml Balance 475 ml 1078.392 ml IV Total 1275 ml 1303.392 ml Gastric Drainage Total 225 ml Emesis 800 ml # Voids 2 2 # Bowel Movements 1 Drains: none Cardiovascular: RSR Respiratory: clear Abdomen: soft, distended, non-tender Extremities: no cyanosis Laboratory Tests Test 11/20/17 17:00 11/21/17 00:20 11/21/17 08:50 Activated Partial Thromboplast Time 50 SEC (23-33) H > 150 SEC (23-33) *H 92 SEC (23-33) H White Blood Count 8.7 K/UL (4.8-10.8) Red Blood Count 4.46 M/UL (4.70-6.10) L Hemoglobin 10.3 G/DL (14.2-18.0) L Hematocrit 32.7 % (42.0-52.0) L Mean Corpuscular Volume 73 FL (80-99) L Mean Corpuscular Hemoglobin 23.2 PG (27.0-31.0) L Mean Corpuscular Hemoglobin Concent 31.7 G/DL (32.0-36.0) L Red Cell Distribution Width 15.2 % (11.6-14.8) H Platelet Count 246 K/UL (150-450) Mean Platelet Volume 7.1 FL (6.5-10.1) Neutrophils (%) (Auto) 71.2 % (45.0-75.0) Lymphocytes (%) (Auto) 13.9 % (20.0-45.0) L Monocytes (%) (Auto) 11.5 % (1.0-10.0) H Eosinophils (%) (Auto) 2.1 % (0.0-3.0) Basophils (%) (Auto) 1.3 % (0.0-2.0) Sodium Level 129 MMOL/L (136-145) L Potassium Level 2.8 MMOL/L (3.5-5.1) L Chloride Level 91 MMOL/L (98-107) L Carbon Dioxide Level 23 MMOL/L (21-32) Anion Gap 16 mmol/L (5-15) H Blood Urea Nitrogen 61 mg/dL (7-18) H Creatinine 2.6 MG/DL (0.55-1.30) H Estimat Glomerular Filtration Rate 30.3 mL/min (>60) Glucose Level 117 MG/DL (74-106) H Lactic Acid Level 2.00 mmol/L (0.66-2.22) Calcium Level 9.1 MG/DL (8.5-10.1) Total Bilirubin 0.7 MG/DL (0.2-1.0) Aspartate Amino Transf (AST/SGOT) 24 U/L (15-37) Alanine Aminotransferase (ALT/SGPT) 17 U/L (12-78) Alkaline Phosphatase 69 U/L (46-116) Total Protein 9.3 G/DL (6.4-8.2) H Albumin 2.7 G/DL (3.4-5.0) L Globulin 6.6 g/dL Albumin/Globulin Ratio 0.4 (1.0-2.7) L Plan Problems: (1) Ileus Assessment & Plan: 62 year old male with ileus vs SBO. afebrile, HD stable, labs reviewed. CT as noted in HPI. Exam as above. fortunately currently stable. possible ileus but concerning radiographic imaging of swirl and transition point near terminal ileus. patient with virgin abdomen. improved this AM. flatus and loose BM. exam less firm. minimal NG tube output NG tube removed. will cont current management. NPO with IV fluids serial abdominal exams. if does not improve may need surgery. will follow with recs. thank you for this consultation. Jg Guy Nov 21, 2017 14:39
[2017-11-21 16:36] VITALS: BP 117/72
[2017-11-21] MEDS ORDERED: Sterile Water For Irrig 2000ml IRRIG ONE (18:19)
[2017-11-21] MEDS ORDERED: D5 1/2NS 1000ml IV ONE (18:19)
--- NOTE | 2017-11-21 19:44 | General Progress Note ---
Assessment/Plan Assessment/Plan Assessment - Microcytic anemia - N/V - ileus vs distal SBO - DVT - HH - Diverticulosis Recommendations - NPO - surgical f/u - follow exam Subjective Allergies: Coded Allergies: No Known Allergies (Unverified , 02/21/16) Subjective above noted seen early AM had NGT at that time no vomiting CT noted Objective Last 24 Hour Vital Signs Date Time Temp Pulse Resp B/P (MAP) Pulse Ox O2 Delivery O2 Flow Rate FiO2 11/21/17 16:36 97.2 80 18 117/72 97 Room Air 97.2 11/21/17 15:25 85 11/21/17 11:53 97.2 74 18 105/91 97 Room Air 97.2 11/21/17 11:34 76 11/21/17 08:25 80 117/70 11/21/17 08:24 117/70 11/21/17 08:03 86 11/21/17 08:02 97.2 80 18 117/70 97 Room Air 97.2 11/21/17 04:00 81 11/21/17 04:00 97.2 72 18 130/70 97 Room Air 97.2 11/21/17 00:00 86 11/21/17 00:00 97.2 90 17 98/54 94 Room Air 97.2 11/20/17 22:24 96 104/62 11/20/17 21:00 98.1 96 20 104/62 95 Room Air 98.1 11/20/17 20:00 98 Intake and Output 11/20/17 11/21/17 19:00 07:00 Intake Total 1275 ml 1341.194 ml Output Total 800 ml 225 ml Balance 475 ml 1116.194 ml IV Total 1275 ml 1341.194 ml Gastric Drainage Total 225 ml Emesis 800 ml # Voids 2 2 # Bowel Movements 1 Laboratory Tests 11/21/17 00:20: Activated Partial Thromboplast Time > 150*H 11/21/17 08:50: Activated Partial Thromboplast Time 92H, White Blood Count 8.7, Red Blood Count 4.46L, Hemoglobin 10.3L, Hematocrit 32.7L, Mean Corpuscular Volume 73L, Mean Corpuscular Hemoglobin 23.2L, Mean Corpuscular Hemoglobin Concent 31.7L, Red Cell Distribution Width 15.2H, Platelet Count 246, Mean Platelet Volume 7.1, Neutrophils (%) (Auto) 71.2, Lymphocytes (%) (Auto) 13.9L, Monocytes (%) (Auto) 11.5H, Eosinophils (%) (Auto) 2.1, Basophils (%) (Auto) 1.3, Sodium Level 129L, Potassium Level 2.8L, Chloride Level 91L, Carbon Dioxide Level 23, Anion Gap 16H , Blood Urea Nitrogen 61H, Creatinine 2.6H, Estimat Glomerular Filtration Rate 30.3, Glucose Level 117H, Lactic Acid Level 2.00, Calcium Level 9.1, Total Bilirubin 0.7, Aspartate Amino Transf (AST/SGOT) 24, Alanine Aminotransferase ( ALT/SGPT) 17, Alkaline Phosphatase 69, Total Protein 9.3H, Albumin 2.7L, Globulin 6.6, Albumin/Globulin Ratio 0.4L Height (Feet): 5 Height (Inches): 8.00 Weight (Pounds): 212 Objective WDWN NCAT CTA RRR Soft obese less distended no edema nonfocal LETY WIGGINS Nov 21, 2017 19:44
[2017-11-21 20:00] VITALS: BP 128/79
--- NOTE | 2017-11-21 21:02 | Pre-Procedure Note/Attestation ---
Pre-Procedure Note/Attestation Complete Prior to Procedure Planned Procedure: not applicable Procedure Narrative: EGD/Colon Indications for Procedure Pre-Operative Diagnosis: anemia Attestation I attest that I discussed the nature of the procedure; its benefits; risks and complications; and alternatives (and the risks and benefits of such alternatives ), prior to the procedure, with the patient (or the patient's legal eligibility services representative). I attest that, if there was a reasonable possibility of needing a blood transfusion, the patient (or the patient's legal eligibility services representative) was given the [facility] standardized written summary, pursuant to the Stevan [place]oy Blood Safety Act ([place] Health and Safety Code # 1645, as amended). I attest that I re-evaluated the patient just prior to the surgery and that there has been no change in the patient's H&P, except as documented below: LETY WIGGINS Nov 21, 2017 21:02
--- NOTE | 2017-11-21 21:03 | Endoscopy Procedure Note ---
Endoscopy Procedure Note General Indication for Procedure: anemia Procedures Performed: flexible sigmoidoscopy, EGD Operative Findings/Diagnosis: r/o SBO Specimen: yes Pt Tolerated Procedure Well: Yes Estimated Blood Loss: none Anesthesia Anesthesiologist: see report Anesthesia: moderate sedation Medications Medication Given: see anesthesia record Inserted Devices Implant(s) used?: No GI Core Measures 50 yrs or older w/o bx or poly: Not Applicable 10yrs. F/U not recommended: Not Applicable If not recommended, why?: LETY WIGGINS Nov 21, 2017 21:03
--- NOTE | 2017-11-21 21:04 | Brief Operative Note ---
Immediate Post Operative Note Operative Note Chief Complaint: anemia Pre-op Diagnosis: anemia Procedure: EGD flex sig Post-op Diagnosis: 1. Significant gastric residual of clear bilious fluid amounting up to about 800 mL, which was aspirated. 2. 3 to 4 cm hiatal hernia. 3. Possible mildly erosive gastritis in the fundus of the stomach, status post biopsy. 4. Status post random biopsy of the duodenum. 5. Poor colonic preparation precluding advancement beyond 40 cm, which was estimated to be the descending colon. Surgeon: jena Anesthesiologist: see report Anesthesia: MAC Specimen: yes Complications: none Condition: stable Fluids: recorded Estimated Blood Loss: none Drains: none Implant(s) used?: No LETY WIGGINS Nov 21, 2017 21:04
[2017-11-22] VITALS (8 sets, daily range): BP systolic 106–125; BP diastolic 65–80
[2017-11-22] MEDS: D5 1/2NS 1,000 ML IV SCH (01:00)
[2017-11-22] MEDS: D5NS w/KCl 40mEq 1000ml 1,000 ML IV SCH ×3 (03:37→23:06)
[2017-11-22] MEDS: Heparin 25,000u/D5W 500ml 500 ML IV SCH ×3 (03:37→21:18)
--- NOTE | 2017-11-22 05:15 | Progress Note ---
DATE: 11/21/2017 INTERNAL MEDICINE PROGRESS NOTE SUBJECTIVE: The patient has some gas passing today with minimal stool that was loose. He still has an NG tube in place. OBJECTIVE: VITAL SIGNS: Blood pressure 117/72, pulse 80, and respiratory rate 18. LUNGS: Clear. CARDIAC: Regular. Normal S1, S2. ABDOMEN: Slightly distended, but soft. No edema. LABORATORY AND DIAGNOSTIC DATA: White count 8.7, hemoglobin 10.3. Potassium 2.8, sodium 129, BUN 61, creatinine 2.6. Lactic acid is 2. property assessment monitor, sinus with nonsustained ventricular tachycardia. IMPRESSION: 1. Ileus. 2. Partial small bowel obstruction. 3. Iron deficiency anemia. 4. Acute deep venous thrombosis of lower extremity. 5. Acute renal failure. 6. Hypokalemia. 7. Hyponatremia. 8. Resolved lactic acidosis. PLAN: 1. Adjust intravenous fluids. 2. Replace potassium. 3. NPO. 4. Await further gastrointestinal and surgical interventions. 5. May need diagnostic studies of remaining colon. 6. Intravenous iron. 7. Full anticoagulation with IV heparin continuing at this time. 8. Cardiac monitoring. 9. Recheck magnesium level. Sunny Sharif M.D. DR: GABRIELA JOB#: [id number] CC:
--- NOTE | 2017-11-22 08:52 | General Progress Note ---
Assessment/Plan Assessment/Plan Assessment - Microcytic anemia - N/V - ileus vs distal SBO - DVT - HH - Diverticulosis Recommendations - diet per surgery - surgical f/u - follow exam - would benefit from SBFT once improved Subjective Allergies: Coded Allergies: No Known Allergies (Unverified , 02/21/16) Subjective above noted NGT out some flatus no vomiting Objective Last 24 Hour Vital Signs Date Time Temp Pulse Resp B/P (MAP) Pulse Ox O2 Delivery O2 Flow Rate FiO2 11/22/17 05:53 86 18 110/68 97 Room Air 11/22/17 04:00 98.1 81 20 118/65 98 Room Air 98.1 11/22/17 04:00 76 11/22/17 00:15 82 18 122/76 97 Room Air 11/22/17 00:00 71 11/22/17 00:00 97.0 71 20 124/77 98 Room Air 97.0 11/21/17 20:37 78 127/70 11/21/17 20:00 85 11/21/17 20:00 98.5 85 20 128/79 98 Room Air 98.5 11/21/17 20:00 85 11/21/17 16:36 97.2 80 18 117/72 97 Room Air 97.2 11/21/17 15:25 85 11/21/17 11:53 97.2 74 18 105/91 97 Room Air 97.2 11/21/17 11:34 76 Intake and Output 11/21/17 11/22/17 19:00 07:00 Intake Total 1203.624 ml 1040.218 ml Balance 1203.624 ml 1040.218 ml IV Total 1203.624 ml 1040.218 ml # Voids 3 2 # Bowel Movements 1 Laboratory Tests 11/21/17 08:50: White Blood Count 8.7, Red Blood Count 4.46L, Hemoglobin 10.3L, Hematocrit 32.7L , Mean Corpuscular Volume 73L, Mean Corpuscular Hemoglobin 23.2L, Mean Corpuscular Hemoglobin Concent 31.7L, Red Cell Distribution Width 15.2H, Platelet Count 246, Mean Platelet Volume 7.1, Neutrophils (%) (Auto) 71.2, Lymphocytes (%) (Auto) 13.9L, Monocytes (%) (Auto) 11.5H, Eosinophils (%) (Auto ) 2.1, Basophils (%) (Auto) 1.3, Activated Partial Thromboplast Time 92H, Sodium Level 129L, Potassium Level 2.8L, Chloride Level 91L, Carbon Dioxide Level 23, Anion Gap 16H, Blood Urea Nitrogen 61H, Creatinine 2.6H, Estimat Glomerular Filtration Rate 30.3, Glucose Level 117H, Lactic Acid Level 2.00, Calcium Level 9.1, Total Bilirubin 0.7, Aspartate Amino Transf (AST/SGOT) 24, Alanine Aminotransferase (ALT/SGPT) 17, Alkaline Phosphatase 69, Total Protein 9.3H, Albumin 2.7L, Globulin 6.6, Albumin/Globulin Ratio 0.4L Height (Feet): 5 Height (Inches): 8.00 Weight (Pounds): 209 Objective WDWN NCAT CTA RRR Soft obese, mod distended no edema nonfocal LETY WIGGINS Nov 22, 2017 08:52
[2017-11-22] MEDS: Pantoprazole Inj IVP SCH (09:10)
[2017-11-22] MEDS: Metoprolol 25mg tab ORAL SCH ×2 (09:11→21:19)
[2017-11-22 12:10] LABS: BASOPHILS % (AUTO) 1.5 % (0.0-2.0); EOSINOPHILS % (AUTO) 1.9 % (0.0-3.0); HEMOGLOBIN 11.2 G/DL (14.2-18.0); LYMPHOCYTES % (AUTO) 15.3 % (20.0-45.0); MEAN CORPUSCULAR VOLUME 75 FL (80-99); MONOCYTES % (AUTO) 8.1 % (1.0-10.0); NEUTROPHILS % (AUTO) 73.2 % (45.0-75.0); PLATELET COUNT 293 K/UL (150-450); RED BLOOD COUNT 4.81 M/UL (4.70-6.10); RED CELL DISTRIBUTION WIDTH 15.5 % (11.6-14.8); WHITE BLOOD COUNT 9.4 K/UL (4.8-10.8)
[2017-11-22] MEDS ORDERED: Heparin 5000 units/ml inj IV SCH (12:45)
[2017-11-22 12:51] LABS: ALANINE AMINOTRANSFERASE 21 U/L (12-78); ALBUMIN/GLOBULIN RATIO 0.4 (1.0-2.7); ALKALINE PHOSPHATASE 80 U/L (46-116); ANION GAP 12 mmol/L (5-15); ASPARTATE AMINO TRANSFERASE 22 U/L (15-37); BILIRUBIN,TOTAL 0.5 MG/DL (0.2-1.0); BLOOD UREA NITROGEN 34 mg/dL (7-18); CALCIUM 9.9 MG/DL (8.5-10.1); CARBON DIOXIDE 24 MMOL/L (21-32); CHLORIDE 97 MMOL/L (98-107); CREATININE 1.3 MG/DL (0.55-1.30); POTASSIUM 3.4 MMOL/L (3.5-5.1); SODIUM 133 MMOL/L (136-145)
--- NOTE | 2017-11-22 15:28 | General Surgery Progress Note ---
General Surgery-Progress Note Subjective Symptoms: improved, pain absent, passing flatus, BM Additional Comments doing well. no n/v/f/c. comfortable. passing lots of flatus and had loose BM' s. Objective Last 24 Hour Vital Signs Date Time Temp Pulse Resp B/P (MAP) Pulse Ox O2 Delivery O2 Flow Rate FiO2 11/22/17 12:00 70 11/22/17 12:00 97.5 71 21 117/78 98 Room Air 97.5 11/22/17 09:11 125/79 11/22/17 09:11 81 125/79 11/22/17 08:00 88 11/22/17 08:00 98.2 81 20 125/79 98 Room Air 98.2 11/22/17 05:53 86 18 110/68 97 Room Air 11/22/17 04:00 98.1 81 20 118/65 98 Room Air 98.1 11/22/17 04:00 76 11/22/17 00:15 82 18 122/76 97 Room Air 11/22/17 00:00 71 11/22/17 00:00 97.0 71 20 124/77 98 Room Air 97.0 11/21/17 20:37 78 127/70 11/21/17 20:00 85 11/21/17 20:00 98.5 85 20 128/79 98 Room Air 98.5 11/21/17 20:00 85 11/21/17 16:36 97.2 80 18 117/72 97 Room Air 97.2 I&O Intake and Output 11/21/17 11/22/17 19:00 07:00 Intake Total 1203.624 ml 1040.218 ml Balance 1203.624 ml 1040.218 ml IV Total 1203.624 ml 1040.218 ml # Voids 3 2 # Bowel Movements 1 Cardiovascular: RSR Respiratory: clear Abdomen: soft, distended, non-tender, present bowel sounds Extremities: no edema, no tenderness, no cyanosis Laboratory Tests Test 11/22/17 11:30 White Blood Count 9.4 K/UL (4.8-10.8) Red Blood Count 4.81 M/UL (4.70-6.10) Hemoglobin 11.2 G/DL (14.2-18.0) L Hematocrit 36.0 % (42.0-52.0) L Mean Corpuscular Volume 75 FL (80-99) L Mean Corpuscular Hemoglobin 23.4 PG (27.0-31.0) L Mean Corpuscular Hemoglobin Concent 31.3 G/DL (32.0-36.0) L Red Cell Distribution Width 15.5 % (11.6-14.8) H Platelet Count 293 K/UL (150-450) Mean Platelet Volume 6.3 FL (6.5-10.1) L Neutrophils (%) (Auto) 73.2 % (45.0-75.0) Lymphocytes (%) (Auto) 15.3 % (20.0-45.0) L Monocytes (%) (Auto) 8.1 % (1.0-10.0) Eosinophils (%) (Auto) 1.9 % (0.0-3.0) Basophils (%) (Auto) 1.5 % (0.0-2.0) Activated Partial Thromboplast Time 52 SEC (23-33) H Sodium Level 133 MMOL/L (136-145) L Potassium Level 3.4 MMOL/L (3.5-5.1) L Chloride Level 97 MMOL/L (98-107) L Carbon Dioxide Level 24 MMOL/L (21-32) Anion Gap 12 mmol/L (5-15) Blood Urea Nitrogen 34 mg/dL (7-18) H Creatinine 1.3 MG/DL (0.55-1.30) Estimat Glomerular Filtration Rate > 60 mL/min (>60) Glucose Level 102 MG/DL (74-106) Calcium Level 9.9 MG/DL (8.5-10.1) Magnesium Level 2.2 MG/DL (1.8-2.4) Total Bilirubin 0.5 MG/DL (0.2-1.0) Aspartate Amino Transf (AST/SGOT) 22 U/L (15-37) Alanine Aminotransferase (ALT/SGPT) 21 U/L (12-78) Alkaline Phosphatase 80 U/L (46-116) Total Protein 10.2 G/DL (6.4-8.2) H Albumin 3.0 G/DL (3.4-5.0) L Globulin 7.2 g/dL Albumin/Globulin Ratio 0.4 (1.0-2.7) L Plan Problems: (1) Ileus Assessment & Plan: 62 year old male with ileus vs SBO. afebrile, HD stable, labs reviewed. CT as noted in HPI. Exam as above. fortunately currently stable. possible ileus but concerning radiographic imaging of swirl and transition point near terminal ileus. patient with virgin abdomen. seems as if he has had return of bowel function. possible just enteritis with ileus which is resolving. start trial clear liquids agree with GI about SBFT will follow with recs. thank you for this consultation. Jg Guy Nov 22, 2017 15:28
[2017-11-23] VITALS: BP 118/76
[2017-11-23] MEDS: Heparin 25,000u/D5W 500ml 500 ML IV SCH (07:19)
[2017-11-23 08:00] VITALS: BP 117/76
[2017-11-23] MEDS: Metoprolol 25mg tab ORAL SCH ×2 (09:00→21:01)
[2017-11-23] MEDS: Pantoprazole Inj IVP SCH (09:00)
[2017-11-23] MEDS: D5NS w/KCl 40mEq 1000ml 1,000 ML IV SCH ×2 (11:45→19:02)
[2017-11-23 12:00] VITALS: BP 127/79
--- NOTE | 2017-11-23 15:56 | Diagnostic Imaging Report ---
Indication: Abdominal pain, small bowel obstruction suspected on prior CT scan Technique: Patient ingested oral water-soluble contrast and serial overhead films obtained Comparison: 11/21/2017 Findings: [employer] film demonstrates diffusely gas-filled nondistended colon, diffusely gas-filled mildly dilated small bowel loops, appearing similar to the previous exam. After ingestion of contrast, there is progressive transit of contrast through small bowel. At 3 hours, contrast is seen throughout the entirety of the colon. There may be colonic contrast present at 2 hours, but this is difficult to state for certain. Impression: Contrast transit throughout the entirety of the GI tract in 3 hours, as described. Dilated small bowel loops are therefore presumed functional in nature rather than due to significant small bowel obstruction
[2017-11-23 16:00] VITALS: BP 125/83
--- NOTE | 2017-11-23 16:11 | General Surgery Progress Note ---
General Surgery-Progress Note Subjective Additional Comments doing well. had SBFT. passing flatus. +BM. tolerating oral Objective Last 24 Hour Vital Signs Date Time Temp Pulse Resp B/P (MAP) Pulse Ox O2 Delivery O2 Flow Rate FiO2 11/23/17 12:00 95 11/23/17 12:00 97.9 80 19 127/79 97 Room Air 97.9 11/23/17 09:00 117/76 11/23/17 09:00 73 117/76 11/23/17 08:00 76 11/23/17 08:00 99.1 73 20 117/76 98 Room Air 99.1 11/23/17 04:00 66 11/23/17 00:00 73 11/23/17 00:00 99.3 95 21 118/76 97 Room Air 99.3 11/22/17 21:19 98 121/80 11/22/17 20:00 90 11/22/17 20:00 98.8 98 21 121/80 96 Room Air 98.8 I&O Intake and Output 11/22/17 11/23/17 19:00 07:00 Intake Total 1862.390 ml 1940 ml Output Total 150 ml 1177 ml Balance 1712.390 ml 763 ml Intake Oral 240 ml 240 ml IV Total 1622.390 ml 1700 ml Output Urine Total 150 ml 150 ml Stool Total 2 ml Gastric Drainage Total 225 ml Emesis 800 ml # Voids 3 2 # Bowel Movements 1 1 Cardiovascular: RSR Respiratory: clear Abdomen: soft, distended, non-tender, present bowel sounds Laboratory Tests Test 11/22/17 18:40 11/23/17 03:30 Activated Partial Thromboplast Time 96 SEC (23-33) H 84 SEC (23-33) H Plan Problems: (1) Ileus Assessment & Plan: 62 year old male with ileus vs SBO. afebrile, HD stable, labs reviewed. CT as noted in HPI. Exam as above. fortunately currently stable. possible ileus but concerning radiographic imaging of swirl and transition point near terminal ileus. patient with virgin abdomen. seems as if he has had return of bowel function. possible just enteritis with ileus which is resolving. SBFT without obstruction. no masses or other abnormality noted. likely functional ileus from electrolyte imbalance vs enteritis. resolving diet as tolerated activity as tolerated. will follow with recs. thank you for this consultation. Jg Guy Nov 23, 2017 16:11
--- NOTE | 2017-11-23 18:24 | General Progress Note ---
Assessment/Plan Assessment/Plan Assessment - Microcytic anemia - N/V - ileus - resolved - DVT - HH - Diverticulosis Recommendations - diet per surgery - surgical f/u - follow exam - d/c planning repeat attempt at Colonoscopy as outpatient Subjective Allergies: Coded Allergies: No Known Allergies (Unverified , 02/21/16) Subjective above noted some flatus no vomiting had SBFT --> negative Objective Last 24 Hour Vital Signs Date Time Temp Pulse Resp B/P (MAP) Pulse Ox O2 Delivery O2 Flow Rate FiO2 11/23/17 16:00 98.1 92 20 125/83 99 Room Air 98.1 11/23/17 16:00 92 11/23/17 12:00 95 11/23/17 12:00 97.9 80 19 127/79 97 Room Air 97.9 11/23/17 09:00 117/76 11/23/17 09:00 73 117/76 11/23/17 08:00 76 11/23/17 08:00 99.1 73 20 117/76 98 Room Air 99.1 11/23/17 04:00 66 11/23/17 00:00 73 11/23/17 00:00 99.3 95 21 118/76 97 Room Air 99.3 11/22/17 21:19 98 121/80 11/22/17 20:00 90 11/22/17 20:00 98.8 98 21 121/80 96 Room Air 98.8 Intake and Output 11/22/17 11/23/17 19:00 07:00 Intake Total 1862.390 ml 1940 ml Output Total 150 ml 1177 ml Balance 1712.390 ml 763 ml Intake Oral 240 ml 240 ml IV Total 1622.390 ml 1700 ml Output Urine Total 150 ml 150 ml Stool Total 2 ml Gastric Drainage Total 225 ml Emesis 800 ml # Voids 3 2 # Bowel Movements 1 1 Laboratory Tests 11/22/17 18:40: Activated Partial Thromboplast Time 96H 11/23/17 03:30: Activated Partial Thromboplast Time 84H Height (Feet): 5 Height (Inches): 8.00 Weight (Pounds): 206 Objective WDWN NCAT CTA RRR Soft obese, mod distended no edema nonfocal LETY WIGGINS Nov 23, 2017 18:24
[2017-11-23 20:00] VITALS: BP 127/78
[2017-11-24] VITALS: BP 120/76
[2017-11-24] MEDS: Heparin 25,000u/D5W 500ml 500 ML IV SCH ×2 (01:03→14:47)
--- NOTE | 2017-11-24 03:15 | Progress Note ---
DATE: 11/22/2017 INTERNAL MEDICINE PROGRESS NOTE Late entry for 11/22/2017. SUBJECTIVE: The patient remains NPO. He is passing gas and has slightly less pain. No vomiting. OBJECTIVE: VITAL SIGNS: Blood pressure 110/68, pulse 86, respirations 18, and afebrile. LUNGS: Clear. CARDIAC: Regular. Normal S1, S2. ABDOMEN: Slightly distended, but softer. No guarding or rebound. EXTREMITIES: Without edema. LABORATORY DATA: White count 9.4 and hemoglobin 11.2. Potassium 3.4 and magnesium 2.2. Albumin 3. IMPRESSION: 1. Recovering small-bowel obstruction versus ileus. 2. Deep venous thrombosis. 3. Possible terminal ileum obstruction. PLAN: 1. Clear liquids. 2. Anticipate upper GI series with small-bowel follow-through soon. 3. Continue anticoagulation with intravenous heparin. 4. Titrate antihypertensives based on clinical parameters. Sunny Sharif M.D. DR: DAVID JOB#: [id number] CC:
[2017-11-24 04:00] VITALS: BP 123/76
--- NOTE | 2017-11-24 04:15 | Progress Note ---
DATE: 11/23/2017 INTERNAL MEDICINE PROGRESS NOTE SUBJECTIVE: No nausea or vomiting. He is tolerating a liquid diet. Vitals are stable. He is afebrile. He had an upper GI series today, which revealed functional small-bowel loops with no signs of obstruction. IMPRESSION: 1. Resolving ileus. 2. Acute DVT. 3. Microcytic anemia, iron deficiency. 4. Diverticulosis. PLAN: 1. Recheck labs. 2. Full anticoagulation. 3. Iron replacement. 4. Advance diet. 5. Outpatient colonoscopy to follow. Sunny Sharif M.D. DR: GABRIELA JOB#: [id number] CC:
[2017-11-24 04:41] LABS: BASOPHILS % (AUTO) 0.8 % (0.0-2.0); EOSINOPHILS % (AUTO) 1.9 % (0.0-3.0); HEMATOCRIT 28.7 % (42.0-52.0); HEMOGLOBIN 9.1 G/DL (14.2-18.0); MEAN CORPUSCULAR VOLUME 74 FL (80-99); MONOCYTES % (AUTO) 16.9 % (1.0-10.0); NEUTROPHILS % (AUTO) 61.4 % (45.0-75.0); PLATELET COUNT 307 K/UL (150-450); RED BLOOD COUNT 3.86 M/UL (4.70-6.10); RED CELL DISTRIBUTION WIDTH 15.9 % (11.6-14.8); WHITE BLOOD COUNT 7.6 K/UL (4.8-10.8)
[2017-11-24] MEDS: D5NS w/KCl 40mEq 1000ml 1,000 ML IV SCH (05:00)
[2017-11-24 05:07] LABS: ALANINE AMINOTRANSFERASE 10 U/L (12-78); ALBUMIN 2.4 G/DL (3.4-5.0); ALBUMIN/GLOBULIN RATIO 0.5 (1.0-2.7); ALKALINE PHOSPHATASE 79 U/L (46-116); ANION GAP 15 mmol/L (5-15); ASPARTATE AMINO TRANSFERASE 26 U/L (15-37); BILIRUBIN,TOTAL 0.4 MG/DL (0.2-1.0); BLOOD UREA NITROGEN 12 mg/dL (7-18); CALCIUM 8.6 MG/DL (8.5-10.1); CARBON DIOXIDE 18 MMOL/L (21-32); CHLORIDE 106 MMOL/L (98-107); CREATININE 0.9 MG/DL (0.55-1.30); PHOSPHORUS 3.2 MG/DL (2.5-4.9); POTASSIUM 3.6 MMOL/L (3.5-5.1); SODIUM 139 MMOL/L (136-145)
[2017-11-24 08:00] VITALS: BP 148/91
--- NOTE | 2017-11-24 08:01 | General Progress Note ---
Assessment/Plan Assessment/Plan Assessment - Microcytic anemia - N/V - ileus - resolved - DVT - HH - Diverticulosis Recommendations - diet per surgery - surgical f/u - follow exam - d/c planning repeat attempt at Colonoscopy as outpatient Subjective ROS Limited/Unobtainable: Yes Allergies: Coded Allergies: No Known Allergies (Unverified , 02/21/16) Subjective no abd pain Objective Last 24 Hour Vital Signs Date Time Temp Pulse Resp B/P (MAP) Pulse Ox O2 Delivery O2 Flow Rate FiO2 11/24/17 04:00 99.8 71 20 123/76 99 Room Air 99.8 11/24/17 04:00 70 11/24/17 00:00 69 11/24/17 00:00 98.8 74 20 120/76 100 Room Air 98.8 11/23/17 21:01 114 127/78 11/23/17 20:00 97.7 114 20 127/78 95 Room Air 97.7 11/23/17 20:00 96 11/23/17 16:00 98.1 92 20 125/83 99 Room Air 98.1 11/23/17 16:00 92 11/23/17 12:00 95 11/23/17 12:00 97.9 80 19 127/79 97 Room Air 97.9 11/23/17 09:00 117/76 11/23/17 09:00 73 117/76 Intake and Output 11/23/17 11/24/17 19:00 07:00 Intake Total 1870.416 ml 1151.208 ml Balance 1870.416 ml 1151.208 ml Intake Oral 600 ml IV Total 1270.416 ml 1151.208 ml # Voids 2 # Bowel Movements 1 Laboratory Tests 11/24/17 04:15: White Blood Count 7.6, Red Blood Count 3.86L, Hemoglobin 9.1L, Hematocrit 28.7L , Mean Corpuscular Volume 74L, Mean Corpuscular Hemoglobin 23.5L, Mean Corpuscular Hemoglobin Concent 31.6L, Red Cell Distribution Width 15.9H, Platelet Count 307, Mean Platelet Volume 5.9L, Neutrophils (%) (Auto) 61.4, Lymphocytes (%) (Auto) 19.0L, Monocytes (%) (Auto) 16.9H, Eosinophils (%) (Auto ) 1.9, Basophils (%) (Auto) 0.8, Activated Partial Thromboplast Time 69H, Sodium Level 139, Potassium Level 3.6, Chloride Level 106, Carbon Dioxide Level 18L, Anion Gap 15, Blood Urea Nitrogen 12, Creatinine 0.9, Estimat Glomerular Filtration Rate > 60, Glucose Level 101, Calcium Level 8.6, Phosphorus Level 3.2 , Magnesium Level 1.4L, Total Bilirubin 0.4, Aspartate Amino Transf (AST/SGOT) 26, Alanine Aminotransferase (ALT/SGPT) 10L, Alkaline Phosphatase 79, Total Protein 7.6, Albumin 2.4L, Globulin 5.2, Albumin/Globulin Ratio 0.5L Height (Feet): 5 Height (Inches): 8.00 Weight (Pounds): 207 General Appearance: alert EENT: normal ENT inspection Neck: supple Cardiovascular: normal rate Respiratory/Chest: decreased breath sounds Abdomen: normal bowel sounds, non tender, soft Extremities: non-tender SHALONDA MARIO Nov 24, 2017 08:01
[2017-11-24] MEDS: Pantoprazole Inj IVP SCH (08:43)
[2017-11-24] MEDS: Metoprolol 25mg tab ORAL SCH ×2 (08:43→21:38)
[2017-11-24 12:00] VITALS: BP 154/81
--- NOTE | 2017-11-24 12:32 | General Surgery Progress Note ---
General Surgery-Progress Note Subjective Symptoms: improved, pain absent, tolerating diet, passing flatus, BM Additional Comments no acute events. comfortable. no n/v/f/c. Objective Last 24 Hour Vital Signs Date Time Temp Pulse Resp B/P (MAP) Pulse Ox O2 Delivery O2 Flow Rate FiO2 11/24/17 12:00 97.6 69 22 154/81 97 Room Air 97.6 11/24/17 08:43 148/91 11/24/17 08:43 79 148/91 11/24/17 08:00 97.3 79 18 148/91 100 Room Air 97.3 11/24/17 08:00 83 11/24/17 04:00 99.8 71 20 123/76 99 Room Air 99.8 11/24/17 04:00 70 11/24/17 00:00 69 11/24/17 00:00 98.8 74 20 120/76 100 Room Air 98.8 11/23/17 21:01 114 127/78 11/23/17 20:00 97.7 114 20 127/78 95 Room Air 97.7 11/23/17 20:00 96 11/23/17 16:00 98.1 92 20 125/83 99 Room Air 98.1 11/23/17 16:00 92 I&O Intake and Output 11/23/17 11/24/17 19:00 07:00 Intake Total 1870.416 ml 1151.208 ml Balance 1870.416 ml 1151.208 ml Intake Oral 600 ml IV Total 1270.416 ml 1151.208 ml # Voids 2 # Bowel Movements 1 1 Drains: none Cardiovascular: RSR Respiratory: clear Abdomen: soft, distended, non-tender, present bowel sounds Extremities: no edema, no tenderness, no cyanosis Laboratory Tests Test 11/24/17 04:15 White Blood Count 7.6 K/UL (4.8-10.8) Red Blood Count 3.86 M/UL (4.70-6.10) L Hemoglobin 9.1 G/DL (14.2-18.0) L Hematocrit 28.7 % (42.0-52.0) L Mean Corpuscular Volume 74 FL (80-99) L Mean Corpuscular Hemoglobin 23.5 PG (27.0-31.0) L Mean Corpuscular Hemoglobin Concent 31.6 G/DL (32.0-36.0) L Red Cell Distribution Width 15.9 % (11.6-14.8) H Platelet Count 307 K/UL (150-450) Mean Platelet Volume 5.9 FL (6.5-10.1) L Neutrophils (%) (Auto) 61.4 % (45.0-75.0) Lymphocytes (%) (Auto) 19.0 % (20.0-45.0) L Monocytes (%) (Auto) 16.9 % (1.0-10.0) H Eosinophils (%) (Auto) 1.9 % (0.0-3.0) Basophils (%) (Auto) 0.8 % (0.0-2.0) Activated Partial Thromboplast Time 69 SEC (23-33) H Sodium Level 139 MMOL/L (136-145) Potassium Level 3.6 MMOL/L (3.5-5.1) Chloride Level 106 MMOL/L (98-107) Carbon Dioxide Level 18 MMOL/L (21-32) L Anion Gap 15 mmol/L (5-15) Blood Urea Nitrogen 12 mg/dL (7-18) Creatinine 0.9 MG/DL (0.55-1.30) Estimat Glomerular Filtration Rate > 60 mL/min (>60) Glucose Level 101 MG/DL (74-106) Calcium Level 8.6 MG/DL (8.5-10.1) Phosphorus Level 3.2 MG/DL (2.5-4.9) Magnesium Level 1.4 MG/DL (1.8-2.4) L Total Bilirubin 0.4 MG/DL (0.2-1.0) Aspartate Amino Transf (AST/SGOT) 26 U/L (15-37) Alanine Aminotransferase (ALT/SGPT) 10 U/L (12-78) L Alkaline Phosphatase 79 U/L (46-116) Total Protein 7.6 G/DL (6.4-8.2) Albumin 2.4 G/DL (3.4-5.0) L Globulin 5.2 g/dL Albumin/Globulin Ratio 0.5 (1.0-2.7) L Plan Problems: (1) Ileus Assessment & Plan: 62 year old male with ileus vs SBO. afebrile, HD stable, labs reviewed. CT as noted in HPI. Exam as above. fortunately currently stable. possible ileus but concerning radiographic imaging of swirl and transition point near terminal ileus. patient with virgin abdomen. seems as if he has had return of bowel function. possible just enteritis with ileus which is resolving. SBFT without obstruction. no masses or other abnormality noted. likely functional ileus from electrolyte imbalance vs enteritis. resolving no acute surgical intervention planned. diet as tolerated activity as tolerated. can consider capsule endoscopy as an outpatient will follow with recs. thank you for this consultation. Jg Guy Nov 24, 2017 12:32
[2017-11-24] MEDS ORDERED: D5NS w/KCl 40mEq 1000ml 1,000 ML IV SCH ×2 (14:00→18:00)
[2017-11-24 16:00] VITALS: BP 144/84
[2017-11-24] MEDS ORDERED: Heparin 25,000u/D5W 500ml 500 ML IV SCH ×2 (18:00)
[2017-11-24 20:00] VITALS: BP 128/74
[2017-11-24] MEDS ORDERED: Lactulose 20gm/30ml UDC ORAL PRN (20:00)
[2017-11-24] MEDS ORDERED: Bisacodyl EC 5mg tab ORAL PRN (20:00)
[2017-11-24] MEDS ORDERED: Iron Sucrose 100 MG in NS 55 ML IV SCH (21:00)
[2017-11-24] MEDS ORDERED: HydrALAZINE 25mg tab ORAL PRN (23:15)
[2017-11-25] VITALS: BP_SYST 120; BP_SYST 132; BP_DIAS 56; BP_DIAS 76
--- NOTE | 2017-11-25 03:45 | Progress Note ---
DATE: 11/24/2017 CARDIOLOGY AND INTERNAL MEDICINE PROGRESS NOTE SUBJECTIVE: The patient feels better. No nausea, vomiting, or abdominal pain. However, his appetite and oral intake remains poor. The case was discussed with Dr. Schwartz and repeat colonoscopy is planned prior to beginning chronic anticoagulation. PHYSICAL EXAMINATION: VITAL SIGNS: Blood pressure 154/81 earlier, now 128/74, heart rate 65, respiratory rate 19, and afebrile. NECK: Supple. LUNGS: Clear. CARDIAC: Regular rhythm and rate. Normal S1 and S2 with a fourth heart sound. ABDOMEN: Slightly distended, but soft. No guarding or rebound. EXTREMITIES: No edema. LABORATORY DATA: White count 7.6 and hemoglobin 9.1. Potassium 3.6 and magnesium 1.4. Albumin 2.4. IMPRESSION: 1. Resolved ileus. 2. Acute deep venous thrombosis, possible pulmonary embolus. 3. Severe hypomagnesemia. 4. Severe protein-calorie malnutrition. 5. Microcytic anemia with severe iron deficiency. PLAN: 1. IV iron. 2. Continue oral intake. 3. Colonoscopy to evaluate fully right colon. 4. IV heparin in the interim. 5. Titrate antihypertensives. 6. IV magnesium replacement. Priyanka Elias JOB#: [id number] CC:
[2017-11-25 04:00] VITALS: BP 125/64
[2017-11-25] MEDS: D5NS w/KCl 40mEq 1000ml 1,000 ML IV SCH (05:43)
[2017-11-25] MEDS ORDERED: Heparin 25,000u/D5W 500ml 500 ML IV SCH ×2 (05:50)
[2017-11-25] MEDS ORDERED: Lactulose 20gm/30ml UDC ORAL PRN (06:00)
--- NOTE | 2017-11-25 07:25 | General Progress Note ---
Assessment/Plan Assessment/Plan Assessment - Microcytic anemia - N/V - ileus - resolved - DVT - HH - Diverticulosis Recommendations -per DR. Stevens plan repeat colonoscopy for tomorrow fu labs Subjective ROS Limited/Unobtainable: Yes Allergies: Coded Allergies: No Known Allergies (Unverified , 02/21/16) Subjective no abd pain drop in H&H without any obvious bleeding Objective Last 24 Hour Vital Signs Date Time Temp Pulse Resp B/P (MAP) Pulse Ox O2 Delivery O2 Flow Rate FiO2 11/25/17 04:00 98.2 72 19 125/64 98 Room Air 98.2 11/25/17 00:00 98.8 65 19 132/76 99 Room Air 98.8 11/24/17 21:38 65 128/74 11/24/17 20:00 98.8 65 19 128/74 98 Room Air 98.8 11/24/17 16:00 98.9 68 18 144/84 98 Room Air 98.9 11/24/17 16:00 62 11/24/17 12:00 97.6 69 22 154/81 97 Room Air 97.6 11/24/17 12:00 65 11/24/17 08:43 148/91 11/24/17 08:43 79 148/91 11/24/17 08:00 97.3 79 18 148/91 100 Room Air 97.3 11/24/17 08:00 83 Intake and Output 11/24/17 11/25/17 19:00 07:00 Intake Total 1620.010 ml 150 ml Output Total 650 ml Balance 970.010 ml 150 ml Intake Oral 680 ml 150 ml IV Total 940.010 ml Output Urine Total 650 ml # Voids 2 # Bowel Movements 2 Laboratory Tests 11/25/17 04:15: Activated Partial Thromboplast Time 124H Height (Feet): 5 Height (Inches): 8.00 Weight (Pounds): 216 General Appearance: alert EENT: normal ENT inspection Neck: supple Cardiovascular: normal rate Respiratory/Chest: lungs clear Abdomen: normal bowel sounds, non tender, soft Extremities: non-tender SHALONDA MARIO Nov 25, 2017 07:25
[2017-11-25 08:00] VITALS: BP 129/81
[2017-11-25] MEDS: Metoprolol 25mg tab ORAL SCH ×2 (09:04→20:46)
[2017-11-25] MEDS: Pantoprazole Inj IVP SCH (09:04)
[2017-11-25 09:25] LABS: BASOPHILS % (AUTO) 0.9 % (0.0-2.0); EOSINOPHILS % (AUTO) 3.9 % (0.0-3.0); HEMATOCRIT 29.5 % (42.0-52.0); HEMOGLOBIN 9.2 G/DL (14.2-18.0); LYMPHOCYTES % (AUTO) 27.8 % (20.0-45.0); MEAN CORPUSCULAR VOLUME 75 FL (80-99); MONOCYTES % (AUTO) 13.1 % (1.0-10.0); NEUTROPHILS % (AUTO) 54.4 % (45.0-75.0); PLATELET COUNT 302 K/UL (150-450); RED BLOOD COUNT 3.92 M/UL (4.70-6.10); WHITE BLOOD COUNT 5.3 K/UL (4.8-10.8)
[2017-11-25] MEDS ORDERED: Milk of Magnesia 30ml Ud ORAL PRN (11:15)
[2017-11-25 12:00] VITALS: BP 121/86
[2017-11-25] MEDS ORDERED: Magnesium Citrate Liq Btl ORAL PRN (12:00)
--- NOTE | 2017-11-25 13:55 | General Surgery Progress Note ---
General Surgery-Progress Note Subjective Symptoms: improved, tolerating diet, passing flatus, BM Additional Comments doing well. no acute events. no n/v/f/c. Objective Last 24 Hour Vital Signs Date Time Temp Pulse Resp B/P (MAP) Pulse Ox O2 Delivery O2 Flow Rate FiO2 11/25/17 12:00 98.3 81 20 121/86 99 Room Air 98.3 11/25/17 09:04 87 129/81 11/25/17 09:04 129/81 11/25/17 08:00 98.4 87 21 129/81 97 Room Air 98.4 11/25/17 04:00 98.2 72 19 125/64 98 Room Air 98.2 11/25/17 00:00 98.8 65 19 132/76 99 Room Air 98.8 11/24/17 21:38 65 128/74 11/24/17 20:00 98.8 65 19 128/74 98 Room Air 98.8 11/24/17 16:00 98.9 68 18 144/84 98 Room Air 98.9 11/24/17 16:00 62 I&O Intake and Output 11/24/17 11/25/17 19:00 07:00 Intake Total 1620.010 ml 150 ml Output Total 650 ml Balance 970.010 ml 150 ml Intake Oral 680 ml 150 ml IV Total 940.010 ml Output Urine Total 650 ml # Voids 2 # Bowel Movements 2 Drains: none Cardiovascular: RSR Respiratory: clear Abdomen: soft, distended, non-tender, present bowel sounds Extremities: no tenderness, no cyanosis Laboratory Tests Test 11/25/17 04:15 11/25/17 11:45 White Blood Count 5.3 K/UL (4.8-10.8) Red Blood Count 3.92 M/UL (4.70-6.10) L Hemoglobin 9.2 G/DL (14.2-18.0) L Hematocrit 29.5 % (42.0-52.0) L Mean Corpuscular Volume 75 FL (80-99) L Mean Corpuscular Hemoglobin 23.4 PG (27.0-31.0) L Mean Corpuscular Hemoglobin Concent 31.1 G/DL (32.0-36.0) L Red Cell Distribution Width 16.0 % (11.6-14.8) H Platelet Count 302 K/UL (150-450) Mean Platelet Volume 4.7 FL (6.5-10.1) L Neutrophils (%) (Auto) 54.4 % (45.0-75.0) Lymphocytes (%) (Auto) 27.8 % (20.0-45.0) Monocytes (%) (Auto) 13.1 % (1.0-10.0) H Eosinophils (%) (Auto) 3.9 % (0.0-3.0) H Basophils (%) (Auto) 0.9 % (0.0-2.0) Activated Partial Thromboplast Time 124 SEC (23-33) H 86 SEC (23-33) H Magnesium Level 1.4 MG/DL (1.8-2.4) L Plan Problems: (1) Ileus Assessment & Plan: 62 year old male with ileus vs SBO. afebrile, HD stable, labs reviewed. CT as noted in HPI. Exam as above. fortunately currently stable. possible ileus but concerning radiographic imaging of swirl and transition point near terminal ileus. patient with virgin abdomen. seems as if he has had return of bowel function. possible just enteritis with ileus which is resolving. SBFT without obstruction. no masses or other abnormality noted. likely functional ileus from electrolyte imbalance vs enteritis. resolving no acute surgical intervention planned. diet as tolerated activity as tolerated. can consider capsule endoscopy as an outpatient Repeat colonoscopy tomorrow as per GI will follow with recs. thank you for this consultation. Jg Guy Nov 25, 2017 13:55
[2017-11-25 16:00] VITALS: BP 114/81
--- NOTE | 2017-11-25 17:41 | Cardiology Report ---
APPROVED REPORT EKG Measurement Heart [id number] Normal sinus rhythm Low voltage QRS Cannot rule out Anterior infarct, age undetermined Abnormal ECG
[2017-11-25 20:00] VITALS: BP 134/92
[2017-11-25] MEDS: Iron Sucrose 100 MG in NS 55 ML IV SCH (20:48)
[2017-11-26] VITALS (9 sets, daily range): BP systolic 113–152; BP diastolic 52–90
[2017-11-26] MEDS: D5NS w/KCl 40mEq 1000ml 1,000 ML IV SCH ×2 (01:10→18:53)
--- NOTE | 2017-11-26 02:30 | Progress Note ---
DATE: 11/25/2017 CARDIOLOGY AND INTERNAL MEDICINE PROGRESS NOTE SUBJECTIVE: The patient has no new complaints. He has not had any nausea, vomiting, melena, or bright red blood per rectum. Hemoglobin dropped 2 points over the past 3 days with no obvious bleeding. PHYSICAL EXAMINATION: VITAL SIGNS: Blood pressure 134/92, pulse 85, and respiratory rate 18-20. NECK: Supple. LUNGS: Clear. CARDIAC: Regular. Normal S1 and S2. ABDOMEN: Soft, slightly distended. EXTREMITY: No edema. LABORATORY AND DIAGNOSTIC DATA: White count 5.3 and hemoglobin 9.2. Magnesium 1.4. IMPRESSION: 1. Resolved partial small bowel obstruction and ileus. 2. Hypomagnesemia. 3. Possible recurring GI bleed. 4. Severe iron deficiency anemia, status post transfusions. 5. Acute DVT, on IV heparin. PLAN: Colonoscopy planned. Continue anticoagulation on heparin during procedure. IV magnesium. Final therapeutic plan to follow results of colonoscopy. Sunny Sharif M.D. DR: SARAH JOB#: [id number] CC:
[2017-11-26] MEDS ORDERED: Propofol 200mg/20ml IV ONE (07:30)
[2017-11-26] MEDS ORDERED: Lidocaine 1% MPF 10mg/ml 5ml ONE (07:30)
[2017-11-26] MEDS ORDERED: fentaNYL 100 mcg/2 mL IV PRN (07:45)
[2017-11-26] MEDS ORDERED: DiphenhydrAMINE 50mg/ml Inj IVP PRN (07:45)
[2017-11-26] MEDS ORDERED: Midazolam 2mg/2ml Inj IVP PRN (07:45)
[2017-11-26] MEDS ORDERED: Atropine Inj 1mg/10ml Syr IV PRN (07:45)
--- NOTE | 2017-11-26 07:54 | Anethesia Preoperative Eval ---
Anesthesia Pre-op PMH/ROS General Date of Evaluation: Nov 26, 2017 Time of Evaluation: 07:30 Anesthesiologist: andrea ASA Score: ASA 3 Mallampati Score Class I : Soft palate, uvula, fauces, pillars visible Class II: Soft palate, uvula, fauces visible Class III: Soft palate, base of uvula visible Class IV: Only hard plate visible Mallampati Classification: Class II Surgeon: beto Diagnosis: gi bleed Surgical Procedure: colonoscopy Anesthesia History: none Social History: smoking - nonsmoker Family History: no anesthesia problems Allergies: Coded Allergies: No Known Allergies (Unverified , 02/21/16) Medications: see eMAR Past Medical History Cardiovascular: Reports: HTN, CAD, other - chf Pulmonary: Reports: asthma Gastrointestinal/Genitourinary: Reports: CRI Hematology/Immune: Reports: anemia, DVT Musculoskeletal/Integumentary: Reports: OA Anesthesia Pre-op Phys. Exam Physician Exam Last Vital Signs Date Time Temp Pulse Resp B/P (MAP) Pulse Ox O2 Delivery O2 Flow Rate FiO2 11/26/17 04:00 97.2 66 19 144/86 98 Room Air 97.2 11/20/17 09:15 Constitutional: NAD Neurologic: CN 2-12 intact Cardiovascular: RRR Respiratory: CTA Gastrointestinal: S/NT/ND Airway Exam Mallampati Score: Class II MO: limited Neck: short TMD: 2fb ROM: limited Dentures: upper Anesthesia Pre-op A/P Labs Labs Test 11/24/17 04:15 11/25/17 04:15 11/25/17 11:45 White Blood Count 7.6 K/UL (4.8-10.8) 5.3 K/UL (4.8-10.8) Red Blood Count 3.86 M/UL (4.70-6.10) 3.92 M/UL (4.70-6.10) Hemoglobin 9.1 G/DL (14.2-18.0) 9.2 G/DL (14.2-18.0) Hematocrit 28.7 % (42.0-52.0) 29.5 % (42.0-52.0) Mean Corpuscular Volume 74 FL (80-99) 75 FL (80-99) Mean Corpuscular Hemoglobin 23.5 PG (27.0-31.0) 23.4 PG (27.0-31.0) Mean Corpuscular Hemoglobin Concent 31.6 G/DL (32.0-36.0) 31.1 G/DL (32.0-36.0) Red Cell Distribution Width 15.9 % (11.6-14.8) 16.0 % (11.6-14.8) Platelet Count 307 K/UL (150-450) 302 K/UL (150-450) Mean Platelet Volume 5.9 FL (6.5-10.1) 4.7 FL (6.5-10.1) Neutrophils (%) (Auto) 61.4 % (45.0-75.0) 54.4 % (45.0-75.0) Lymphocytes (%) (Auto) 19.0 % (20.0-45.0) 27.8 % (20.0-45.0) Monocytes (%) (Auto) 16.9 % (1.0-10.0) 13.1 % (1.0-10.0) Eosinophils (%) (Auto) 1.9 % (0.0-3.0) 3.9 % (0.0-3.0) Basophils (%) (Auto) 0.8 % (0.0-2.0) 0.9 % (0.0-2.0) Activated Partial Thromboplast Time 69 SEC (23-33) 124 SEC (23-33) 86 SEC (23-33) Sodium Level 139 MMOL/L (136-145) Potassium Level 3.6 MMOL/L (3.5-5.1) Chloride Level 106 MMOL/L (98-107) Carbon Dioxide Level 18 MMOL/L (21-32) Anion Gap 15 mmol/L (5-15) Blood Urea Nitrogen 12 mg/dL (7-18) Creatinine 0.9 MG/DL (0.55-1.30) Estimat Glomerular Filtration Rate > 60 mL/min (>60) Glucose Level 101 MG/DL (74-106) Calcium Level 8.6 MG/DL (8.5-10.1) Phosphorus Level 3.2 MG/DL (2.5-4.9) Magnesium Level 1.4 MG/DL (1.8-2.4) 1.4 MG/DL (1.8-2.4) Total Bilirubin 0.4 MG/DL (0.2-1.0) Aspartate Amino Transf (AST/SGOT) 26 U/L (15-37) Alanine Aminotransferase (ALT/SGPT) 10 U/L (12-78) Alkaline Phosphatase 79 U/L (46-116) Total Protein 7.6 G/DL (6.4-8.2) Albumin 2.4 G/DL (3.4-5.0) Globulin 5.2 g/dL Albumin/Globulin Ratio 0.5 (1.0-2.7) Coagulation Test 11/25/17 11:45 Activated Partial Thromboplast Time 86 SEC (23-33) H Risk Assessment & Plan Assessment: asa3 Plan: mac Status Change Before Surgery: No Pre-Antibiotics Drug: FLORENCIO Wolf Nov 26, 2017 07:54
[2017-11-26] MEDS ORDERED: NS 500ML IV ONE (08:00)
--- NOTE | 2017-11-26 08:04 | Pre-Procedure Note/Attestation ---
Pre-Procedure Note/Attestation Complete Prior to Procedure Planned Procedure: not applicable Procedure Narrative: colonoscopy Indications for Procedure Pre-Operative Diagnosis: anemia Attestation I attest that I discussed the nature of the procedure; its benefits; risks and complications; and alternatives (and the risks and benefits of such alternatives ), prior to the procedure, with the patient (or the patient's legal healthcare representative). I attest that, if there was a reasonable possibility of needing a blood transfusion, the patient (or the patient's legal healthcare representative) was given the [facility] standardized written summary, pursuant to the Stevan William Blood Safety Act ([place] Health and Safety Code # 1645, as amended). I attest that I re-evaluated the patient just prior to the surgery and that there has been no change in the patient's H&P, except as documented below: LETY WIGGINS Nov 26, 2017 08:04
--- NOTE | 2017-11-26 08:07 | General Progress Note ---
Assessment/Plan Assessment/Plan Assessment - Microcytic anemia - N/V - ileus - resolved - DVT - HH - Diverticulosis Recommendations - follow labs - IV Fe - Colonoscopy today POST PROCEDURE - mild diffuse diverticulosis - one small polyp at 40 cm removed - no e/o ulcer or cancer - Recommend outpatient MRE folowed by possible capsule endoscopy - OK to anticoagulate - monitor H&H - resume PO Subjective Allergies: Coded Allergies: No Known Allergies (Unverified , 02/21/16) Subjective above noted (+) BM with prep NPO for colonoscopy Objective Last 24 Hour Vital Signs Date Time Temp Pulse Resp B/P (MAP) Pulse Ox O2 Delivery O2 Flow Rate FiO2 11/26/17 04:00 97.2 66 19 144/86 98 Room Air 97.2 11/26/17 00:00 98.4 75 20 119/76 98 98.4 11/25/17 20:46 85 134/92 11/25/17 20:00 98.8 85 20 134/92 98 98.8 11/25/17 16:00 97.0 89 22 114/81 97 Room Air 97.0 11/25/17 12:00 98.3 81 20 121/86 99 Room Air 98.3 11/25/17 09:04 87 129/81 11/25/17 09:04 129/81 Intake and Output 11/25/17 11/26/17 19:00 07:00 Intake Total 1965.584 ml 518.528 ml Output Total 400 ml Balance 1565.584 ml 518.528 ml Intake Oral 480 ml IV Total 1485.584 ml 518.528 ml Output Urine Total 400 ml # Voids 5 1 # Bowel Movements 4 4 Laboratory Tests 11/25/17 11:45: Activated Partial Thromboplast Time 86H Height (Feet): 5 Height (Inches): 8.00 Weight (Pounds): 209 Objective WDWN NCAT CTA RRR Soft obese, mod distended no edema nonfocal LETY WIGGINS Nov 26, 2017 08:07
[2017-11-26] MEDS: Pantoprazole Inj IVP SCH (09:43)
[2017-11-26] MEDS: Metoprolol 25mg tab ORAL SCH ×2 (09:44→19:58)
[2017-11-26] MEDS ORDERED: Heparin 25,000u/D5W 500ml 500 ML IV SCH (11:00)
[2017-11-26 12:44] LABS: BASOPHILS % (AUTO) 0.9 % (0.0-2.0); HEMATOCRIT 32.3 % (42.0-52.0); HEMOGLOBIN 10.1 G/DL (14.2-18.0); LYMPHOCYTES % (AUTO) 19.7 % (20.0-45.0); MEAN CORPUSCULAR VOLUME 75 FL (80-99); MONOCYTES % (AUTO) 10.1 % (1.0-10.0); NEUTROPHILS % (AUTO) 66.3 % (45.0-75.0); PLATELET COUNT 322 K/UL (150-450); RED BLOOD COUNT 4.28 M/UL (4.70-6.10); RED CELL DISTRIBUTION WIDTH 15.7 % (11.6-14.8); WHITE BLOOD COUNT 6.3 K/UL (4.8-10.8)
[2017-11-26 12:58] LABS: ANION GAP 12 mmol/L (5-15); BLOOD UREA NITROGEN 8 mg/dL (7-18); CALCIUM 9.8 MG/DL (8.5-10.1); CARBON DIOXIDE 19 MMOL/L (21-32); CHLORIDE 107 MMOL/L (98-107); CREATININE 0.9 MG/DL (0.55-1.30); POTASSIUM 3.2 MMOL/L (3.5-5.1); SODIUM 138 MMOL/L (136-145)
--- NOTE | 2017-11-26 14:57 | General Surgery Progress Note ---
General Surgery-Progress Note Subjective Additional Comments no acute events. doing well. Objective Last 24 Hour Vital Signs Date Time Temp Pulse Resp B/P (MAP) Pulse Ox O2 Delivery O2 Flow Rate FiO2 11/26/17 12:00 98.0 58 20 152/52 98 Room Air 98.0 11/26/17 09:44 64 150/89 11/26/17 09:43 150/89 11/26/17 09:20 65 20 146/88 98 Room Air 11/26/17 09:10 65 20 139/87 98 Room Air 11/26/17 09:05 68 20 131/82 98 Room Air 11/26/17 09:00 97.7 53 20 126/83 100 Simple Mask 8.0 97.7 11/26/17 04:00 97.2 66 19 144/86 98 Room Air 97.2 11/26/17 00:00 98.4 75 20 119/76 98 98.4 11/25/17 20:46 85 134/92 11/25/17 20:00 98.8 85 20 134/92 98 98.8 11/25/17 16:00 97.0 89 22 114/81 97 Room Air 97.0 I&O Intake and Output 11/25/17 11/26/17 19:00 07:00 Intake Total 1965.584 ml 593.528 ml Output Total 400 ml Balance 1565.584 ml 593.528 ml Intake Oral 480 ml IV Total 1485.584 ml 593.528 ml Output Urine Total 400 ml # Voids 5 1 # Bowel Movements 4 4 Cardiovascular: RSR Respiratory: clear Abdomen: soft, distended, non-tender, present bowel sounds Extremities: no edema, no tenderness, no cyanosis Laboratory Tests Test 11/26/17 00:10 11/26/17 12:10 White Blood Count 6.3 K/UL (4.8-10.8) Red Blood Count 4.28 M/UL (4.70-6.10) L Hemoglobin 10.1 G/DL (14.2-18.0) L Hematocrit 32.3 % (42.0-52.0) L Mean Corpuscular Volume 75 FL (80-99) L Mean Corpuscular Hemoglobin 23.7 PG (27.0-31.0) L Mean Corpuscular Hemoglobin Concent 31.4 G/DL (32.0-36.0) L Red Cell Distribution Width 15.7 % (11.6-14.8) H Platelet Count 322 K/UL (150-450) Mean Platelet Volume 5.3 FL (6.5-10.1) L Neutrophils (%) (Auto) 66.3 % (45.0-75.0) Lymphocytes (%) (Auto) 19.7 % (20.0-45.0) L Monocytes (%) (Auto) 10.1 % (1.0-10.0) H Eosinophils (%) (Auto) 3.0 % (0.0-3.0) Basophils (%) (Auto) 0.9 % (0.0-2.0) Activated Partial Thromboplast Time 31 SEC (23-33) Sodium Level 138 MMOL/L (136-145) Potassium Level 3.2 MMOL/L (3.5-5.1) L Chloride Level 107 MMOL/L (98-107) Carbon Dioxide Level 19 MMOL/L (21-32) L Anion Gap 12 mmol/L (5-15) Blood Urea Nitrogen 8 mg/dL (7-18) Creatinine 0.9 MG/DL (0.55-1.30) Estimat Glomerular Filtration Rate > 60 mL/min (>60) Glucose Level 98 MG/DL (74-106) Calcium Level 9.8 MG/DL (8.5-10.1) Plan Problems: (1) Ileus Assessment & Plan: 62 year old male with ileus vs SBO. afebrile, HD stable, labs reviewed. CT as noted in HPI. Exam as above. fortunately currently stable. possible ileus but concerning radiographic imaging of swirl and transition point near terminal ileus. patient with virgin abdomen. seems as if he has had return of bowel function. possible just enteritis with ileus which is resolving. SBFT without obstruction. no masses or other abnormality noted. likely functional ileus from electrolyte imbalance vs enteritis. resolving no acute surgical intervention planned. diet as tolerated activity as tolerated. can consider capsule endoscopy as an outpatient Repeat colonoscopy as per GI will follow with recs. thank you for this consultation. Jg Guy Nov 26, 2017 14:57
[2017-11-26] MEDS: Iron Sucrose 100 MG in NS 55 ML IV SCH (19:55)
[2017-11-26] MEDS ORDERED: Eliquis 2.5mg tablet ORAL SCH (20:00)
--- NOTE | 2017-11-26 22:01 | Immediate Post-Op Evaluation ---
Immediate Post-Op Evalulation Immediate Post-Op Evalulation Procedure: EGD, colonoscopy Date of Evaluation: Nov 26, 2017 Time of Evaluation: 09:12 IV Fluids: 250ml 0.9ns Blood Products: none Estimated Blood Loss: negligible Blood Pressure Systolic: 126 Blood Pressure Diastolic: 83 Pulse Rate: 68 Respiratory Rate: 18 O2 Sat by Pulse Oximetry: 100 Temperature (Fahrenheit): 97.7 Pain Score (1-10): 0 Nausea: No Vomiting: No Complications none Patient Status: awake, reacts, patent Hydration Status: adequate Drug: FLORENCIO Wolf Nov 26, 2017 22:01
--- NOTE | 2017-11-26 22:04 | 48 Hour Post Anesthesia Eval ---
Post Anesthesia Evaluation Procedure: colonoscopy Date of Evaluation: Nov 26, 2017 Time of Evaluation: 09:14 Blood Pressure Systolic: 131 0: 82 Pulse Rate: 67 Respiratory Rate: 18 Temperature (Fahrenheit): 97.7 O2 Sat by Pulse Oximetry: 100 Airway: patent Nausea: No Vomiting: No Pain Intensity: 0 Hydration Status: adequate Cardiopulmonary Status: stable Mental Status/LOC: patient returned to baseline Post-Anesthesia Complications: none Follow-up care needed: N/A FLORENCIO ORTEGA Nov 26, 2017 22:04
--- NOTE | 2017-11-26 23:00 | Progress Note ---
DATE: 11/26/2017 CARDIOLOGY PROGRESS NOTE SUBJECTIVE: The patient underwent repeat colonoscopy today. Small polyp was removed and diverticulosis noted with no active bleeding. The patient is tolerating now his diet. OBJECTIVE: VITAL SIGNS: Blood pressure 152/52, pulse 58, respiratory rate 20. LUNGS: Clear. CARDIAC: Regular. Normal S1, S2. ABDOMEN: Soft. EXTREMITIES: No edema. LABORATORY DATA: Labs noted. IMPRESSION: 1. Hypokalemia. 2. Hypomagnesemia. 3. Resolved ileus. 4. Acute deep venous thrombosis. 5. Iron-deficiency anemia. 6. Severe protein-calorie malnutrition. PLAN: 1. Transition from IV heparin to oral anticoagulant. 2. Replace potassium and magnesium. 3. Continue iron replacement. 4. Nutritional support. 5. Discharge planning. Sunny Sharif M.D. DR: Sommer JOB#: [id number] CC:
[2017-11-27] VITALS (7 sets, daily range): BP systolic 125–138; BP diastolic 81–87
[2017-11-27 08:28] LABS: BASOPHILS % (AUTO) 0.7 % (0.0-2.0); EOSINOPHILS % (AUTO) 3.1 % (0.0-3.0); HEMATOCRIT 29.8 % (42.0-52.0); HEMOGLOBIN 9.4 G/DL (14.2-18.0); LYMPHOCYTES % (AUTO) 26.4 % (20.0-45.0); MEAN CORPUSCULAR VOLUME 76 FL (80-99); NEUTROPHILS % (AUTO) 61.8 % (45.0-75.0); PLATELET COUNT 324 K/UL (150-450); RED BLOOD COUNT 3.93 M/UL (4.70-6.10); RED CELL DISTRIBUTION WIDTH 16.3 % (11.6-14.8); WHITE BLOOD COUNT 6.4 K/UL (4.8-10.8)
[2017-11-27 08:48] LABS: ALANINE AMINOTRANSFERASE 27 U/L (12-78); ALBUMIN 2.5 G/DL (3.4-5.0); ALBUMIN/GLOBULIN RATIO 0.4 (1.0-2.7); ALKALINE PHOSPHATASE 75 U/L (46-116); ANION GAP 9 mmol/L (5-15); ASPARTATE AMINO TRANSFERASE 20 U/L (15-37); BILIRUBIN,TOTAL 0.3 MG/DL (0.2-1.0); BLOOD UREA NITROGEN 5 mg/dL (7-18); CALCIUM 9.4 MG/DL (8.5-10.1); CARBON DIOXIDE 22 MMOL/L (21-32); CHLORIDE 107 MMOL/L (98-107); POTASSIUM 3.8 MMOL/L (3.5-5.1); SODIUM 138 MMOL/L (136-145)
[2017-11-27] MEDS: Metoprolol 25mg tab ORAL SCH ×2 (08:48→20:16)
[2017-11-27] MEDS: Eliquis 2.5mg tablet ORAL SCH ×2 (08:48→18:23)
[2017-11-27] MEDS: Pantoprazole Inj IVP SCH (08:48)
[2017-11-27] MEDS: D5NS w/KCl 40mEq 1000ml 1,000 ML IV SCH (09:05)
[2017-11-27] MEDS ORDERED: Tubing IV Secondary IV ONE (09:09)
--- NOTE | 2017-11-27 14:03 | General Surgery Progress Note ---
General Surgery-Progress Note Subjective Symptoms: improved, tolerating diet, passing flatus, BM Additional Comments no acute events. repeat colonoscopy with small polyp and diverticuli. Objective Last 24 Hour Vital Signs Date Time Temp Pulse Resp B/P (MAP) Pulse Ox O2 Delivery O2 Flow Rate FiO2 11/27/17 12:00 97.5 65 16 128/81 100 Room Air 97.5 11/27/17 08:49 132/84 11/27/17 08:48 81 132/84 11/27/17 08:33 98.5 81 18 132/84 100 Room Air 98.5 11/27/17 08:00 98.5 20 132/84 100 Room Air 98.5 11/27/17 04:00 98.9 75 19 138/87 98 98.9 11/27/17 00:00 98.4 66 19 125/83 97 98.4 11/26/17 22:04 207.9 67 18 100 11/26/17 22:01 207.9 68 18 100 11/26/17 20:00 98.9 78 20 113/77 97 98.9 11/26/17 19:58 78 113/77 11/26/17 16:00 98.0 64 19 143/90 97 Room Air 98.0 I&O Intake and Output 11/26/17 11/27/17 19:00 07:00 Intake Total 1852.63 ml 1133.42 ml Output Total 800 ml Balance 1852.63 ml 333.42 ml Intake Oral 900 ml IV Total 952.63 ml 1133.42 ml Output Urine Total 800 ml # Voids 3 # Bowel Movements 1 Drains: none Cardiovascular: RSR Respiratory: clear Abdomen: soft, distended, non-tender, present bowel sounds Extremities: no edema, no tenderness, no cyanosis Laboratory Tests Test 11/27/17 07:55 White Blood Count 6.4 K/UL (4.8-10.8) Red Blood Count 3.93 M/UL (4.70-6.10) L Hemoglobin 9.4 G/DL (14.2-18.0) L Hematocrit 29.8 % (42.0-52.0) L Mean Corpuscular Volume 76 FL (80-99) L Mean Corpuscular Hemoglobin 23.9 PG (27.0-31.0) L Mean Corpuscular Hemoglobin Concent 31.5 G/DL (32.0-36.0) L Red Cell Distribution Width 16.3 % (11.6-14.8) H Platelet Count 324 K/UL (150-450) Mean Platelet Volume 6.1 FL (6.5-10.1) L Neutrophils (%) (Auto) 61.8 % (45.0-75.0) Lymphocytes (%) (Auto) 26.4 % (20.0-45.0) Monocytes (%) (Auto) 8.0 % (1.0-10.0) Eosinophils (%) (Auto) 3.1 % (0.0-3.0) H Basophils (%) (Auto) 0.7 % (0.0-2.0) Sodium Level 138 MMOL/L (136-145) Potassium Level 3.8 MMOL/L (3.5-5.1) Chloride Level 107 MMOL/L (98-107) Carbon Dioxide Level 22 MMOL/L (21-32) Anion Gap 9 mmol/L (5-15) Blood Urea Nitrogen 5 mg/dL (7-18) L Creatinine 1.0 MG/DL (0.55-1.30) Estimat Glomerular Filtration Rate > 60 mL/min (>60) Glucose Level 114 MG/DL (74-106) H Calcium Level 9.4 MG/DL (8.5-10.1) Magnesium Level 1.0 MG/DL (1.8-2.4) L Total Bilirubin 0.3 MG/DL (0.2-1.0) Aspartate Amino Transf (AST/SGOT) 20 U/L (15-37) Alanine Aminotransferase (ALT/SGPT) 27 U/L (12-78) Alkaline Phosphatase 75 U/L (46-116) Total Protein 8.2 G/DL (6.4-8.2) Albumin 2.5 G/DL (3.4-5.0) L Globulin 5.7 g/dL Albumin/Globulin Ratio 0.4 (1.0-2.7) L Plan Problems: (1) Ileus Assessment & Plan: 62 year old male with ileus vs SBO. afebrile, HD stable, labs reviewed. CT as noted in HPI. Exam as above. fortunately currently stable. possible ileus but concerning radiographic imaging of swirl and transition point near terminal ileus. patient with virgin abdomen. seems as if he has had return of bowel function. possible just enteritis with ileus which is resolving. SBFT without obstruction. no masses or other abnormality noted. likely functional ileus from electrolyte imbalance vs enteritis. resolving no acute surgical intervention planned. diet as tolerated activity as tolerated. okay to d/c from surgical standpoint Jg Guy November 27, 2017 14:03
[2017-11-27] MEDS: Iron Sucrose 100 MG in NS 55 ML IV SCH (20:16)
--- NOTE | 2017-11-27 20:26 | General Progress Note ---
Assessment/Plan Assessment/Plan Assessment - Microcytic anemia - N/V - ileus - resolved - DVT - HH - Diverticulosis and one colon polyp Recommendations - follow labs - IV Fe - outpatient MRE followed by possible capsule endoscopy - anticoagulation - monitor H&H Subjective Allergies: Coded Allergies: No Known Allergies (Unverified , 02/21/16) Subjective above noted feels OK no new symptoms Objective Last 24 Hour Vital Signs Date Time Temp Pulse Resp B/P (MAP) Pulse Ox O2 Delivery O2 Flow Rate FiO2 11/27/17 20:16 71 135/84 11/27/17 16:00 97.7 64 20 130/86 100 Room Air 97.7 11/27/17 12:00 97.5 65 16 128/81 100 Room Air 97.5 11/27/17 08:49 132/84 11/27/17 08:48 81 132/84 11/27/17 08:33 98.5 81 18 132/84 100 Room Air 98.5 11/27/17 08:00 98.5 20 132/84 100 Room Air 98.5 11/27/17 04:00 98.9 75 19 138/87 98 98.9 11/27/17 00:00 98.4 66 19 125/83 97 98.4 11/26/17 22:04 207.9 67 18 100 11/26/17 22:01 207.9 68 18 100 Intake and Output 11/26/17 11/27/17 19:00 07:00 Intake Total 1852.63 ml 1133.42 ml Output Total 800 ml Balance 1852.63 ml 333.42 ml Intake Oral 900 ml IV Total 952.63 ml 1133.42 ml Output Urine Total 800 ml # Voids 3 # Bowel Movements 1 Laboratory Tests 11/27/17 07:55: White Blood Count 6.4, Red Blood Count 3.93L, Hemoglobin 9.4L, Hematocrit 29.8L , Mean Corpuscular Volume 76L, Mean Corpuscular Hemoglobin 23.9L, Mean Corpuscular Hemoglobin Concent 31.5L, Red Cell Distribution Width 16.3H, Platelet Count 324, Mean Platelet Volume 6.1L, Neutrophils (%) (Auto) 61.8, Lymphocytes (%) (Auto) 26.4, Monocytes (%) (Auto) 8.0, Eosinophils (%) (Auto) 3.1H, Basophils (%) (Auto) 0.7, Sodium Level 138, Potassium Level 3.8, Chloride Level 107, Carbon Dioxide Level 22, Anion Gap 9, Blood Urea Nitrogen 5L, Creatinine 1.0, Estimat Glomerular Filtration Rate > 60, Glucose Level 114H, Calcium Level 9.4, Magnesium Level 1.0L, Total Bilirubin 0.3, Aspartate Amino Transf (AST/SGOT) 20, Alanine Aminotransferase (ALT/SGPT) 27, Alkaline Phosphatase 75, Total Protein 8.2, Albumin 2.5L, Globulin 5.7, Albumin/Globulin Ratio 0.4L Height (Feet): 5 Height (Inches): 8.00 Weight (Pounds): 206 Objective WDWN NCAT CTA RRR Soft obese, mod distended no edema nonfocal LETY WIGGINS November 27, 2017 20:26
[2017-11-28] VITALS: BP 151/93
[2017-11-28] MEDS ORDERED: FERROUS SULFAT325 MG ORAL ×2 (03:59→04:01)
[2017-11-28 04:00] VITALS: BP 144/85
[2017-11-28] MEDS ORDERED: ELIQUIS5 MG PO ×2 (04:03→13:21)
[2017-11-28] MEDS ORDERED: BENAZEPRIL HCL40 MG ORAL ×2 (04:08→13:22)
[2017-11-28] MEDS ORDERED: METOPROLOL TART25 MG ORAL (04:13)
[2017-11-28] MEDS ORDERED: PRAVASTATIN SOD40 M1 ORAL (04:14)
[2017-11-28 08:00] VITALS: BP 152/73
[2017-11-28] MEDS: Eliquis 2.5mg tablet ORAL SCH (09:26)
[2017-11-28] MEDS: Metoprolol 25mg tab ORAL SCH (09:26)
[2017-11-28] MEDS: Pantoprazole Inj IVP SCH (09:26)
[2017-11-28 12:00] VITALS: BP 138/83
[2017-11-28] MEDS ORDERED: AMOX TR-K CLV1 EAC1 ORAL (13:10)
[2017-11-28] MEDS ORDERED: CLARITHROMYCIN500 MG PO (13:14)
[2017-11-28] MEDS ORDERED: AMOXICILLIN500 MG ORAL (13:18)
[2017-11-28] MEDS ORDERED: OMEPRAZOLE20 M2 ORAL (13:19)
--- NOTE | 2017-11-28 21:48 | General Progress Note ---
Assessment/Plan Assessment/Plan Assessment - Microcytic anemia - N/V - ileus - resolved - DVT - HH - Diverticulosis and one colon polyp Recommendations - follow labs - IV Fe - outpatient MRE followed by possible capsule endoscopy - anticoagulation - monitor H&H Subjective Allergies: Coded Allergies: No Known Allergies (Unverified , 02/21/16) Subjective above noted feels OK no new symptoms for discharge today Objective Last 24 Hour Vital Signs Date Time Temp Pulse Resp B/P (MAP) Pulse Ox O2 Delivery O2 Flow Rate FiO2 11/28/17 12:00 98.9 61 17 138/83 98 Room Air 98.9 11/28/17 09:26 60 152/73 11/28/17 09:26 152/73 11/28/17 08:00 97.5 60 14 152/73 100 Room Air 97.5 11/28/17 04:00 98.9 65 18 144/85 94 98.9 11/28/17 00:00 98.2 71 20 151/93 98 98.2 Intake and Output 11/27/17 11/28/17 19:00 07:00 Intake Total 802.5 ml 1115 ml Output Total 200 ml 900 ml Balance 602.5 ml 215 ml Intake Oral 240 ml 275 ml IV Total 562.5 ml 840 ml Output Urine Total 200 ml 900 ml # Voids 5 # Bowel Movements 1 Height (Feet): 5 Height (Inches): 8.00 Weight (Pounds): 206 Objective WDWN NCAT CTA RRR Soft obese, mod distended no edema nonfocal LETY WIGGINS November 28, 2017 21:48
--- NOTE | 2017-11-30 15:44 | Discharge Summary ---
Discharge Summary Discharge Summary Discharge Summary DATE OF ADMISSION: 11/16/2017 DATE OF DISCHARGE: 11/28/2017 CONSULTANTS: Dr. Nydia Guy BRIEF HOSPITAL COURSE: Patient is a 62-year-old male, with history of hypertensive heart disease with congestive heart failure, had increased weakness for several days accompanied with fatigue, shortness of breath, and leg swelling. He was referred to a casing running machine tender by his primary care physician, however was not able to make that appointment yet. He has been on diuretics but has not improved. He has medical history significant for hypertension, congestive heart failure, and osteoarthritis. On evaluation at ED, blood work showed WBC 13.8. Hemoglobin 11, hematocrit 36. BUN 20, creatinine 1.4. Troponin was negative proBNP was 450. EKG was in normal sinus rhythm, no ST to T wave changes. Chest x-ray showed no effusion, no consolidation. He was admitted for cardiac monitoring. He was given diuresis. Echocardiogram showed ejection fraction of 60% with normal left ventricular chamber size, function, and wall motion. He had a venous duplex of the lower extremity that showed acute thrombosis in the superficial femoral to popliteal vein on the right leg. He was given full anticoagulation with IV heparin. He had anemia, GI evaluation was done. On 11/20/2017 he underwent upper GI endoscopy with biopsy as well as attempted colonoscopy resulting in flexible sigmoidoscopy. There was significant gastric residual of clear bilious fluid amounting to 800 mL aspirated. He had 3-4 cm Herriott hernia, possible erosive gastritis in the fundus of the stomach, status post biopsy, status post random biopsy of duodenum. Patient had poor colonic prep precluding advancement beyond 40 cm. He was kept on nothing by mouth. He was given proton pump inhibitors. CAT scan of the abdomen showed dilated fluid-filled small bowel well, extending all the way to the terminal ileum. Kinking and narrowing of the terminal ileum just proximal to the ileocecal valve suspicious for small bowel obstruction. Surgical evaluation was done. NG tube was inserted. Patient was passing flat dose and had loose bowel movement. NG tube with minimal output. NG tube was removed. KUB showed possible ileus. He continued to have lactose and bowel movements. He was eventually started on clear liquid diet. Small bowel follow through showed contrast transit throughout the entirety of GI tract in 3 hours. Diet was advanced. He underwent repeat colonoscopy on 11/26/2017, 1 polyp was removed. Patient has diverticulosis. He was recommended capsule endoscopy as outpatient. Electrolytes were replenished. He was transitioned to po anticoagulation and was given eliquis. He was eventually discharged home. FINAL DIAGNOSES: Resolved ileus Acute DVT right leg Acute on chronic diastolic congestive heart failure Iron deficiency anemia Severe protein calorie malnutrition Hypokalemia Hypomagnesemia Severe anemia status post transfusion Hypertensive heart disease DISPOSITION: Patient was discharged home. DISCHARGE MEDICATIONS: Refer to Discharge Medication List. DISCHARGE INSTRUCTIONS: Follow up with PCP in a week. I have been assigned to dictate discharge summary on this account, and I was not involved in the patient's management. Yamilet Milner NP November 30, 2017 15:44
--- NOTE | 2017-12-03 10:32 | Diagnostic Imaging Report ---
APPROVED REPORT CPT Code: 02750 Present Symptoms Comments: BILATERAL LEGS PAIN. RIGHT LEG: Venous imaging reveals acute thrombus in the superficial femoral to popliteal veins. Imaging also reveals patency of the common femoral and calf veins. LEFT LEG: Venous imaging reveals a patent deep venous system. There is no evidence of thrombus within the femoral, popliteal or tibial segments. The greater saphenous vein is also within normal limits. Doppler indicates normal spontaneous flow within these segments.
== END 2017-11-28 14:49 | disposition home or self-care (01) | DRG 194 ==
LOC: EDBD 07:24 → EMR 07:53 → EDBEDREQ 08:03 → 2E 08:40 → EDBEDREQ 09:23 → 4E 11-24 17:52
PROC: 0D968ZX Drainage of Stomach, Via Natural or Artificial Opening Endoscopic, Diagnostic (ICD-10-PCS; 2017-11-20)
PROC: 0DB78ZX Excision of Stomach, Pylorus, Via Natural or Artificial Opening Endoscopic, Diagnostic (ICD-10-PCS; 2017-11-20)
PROC: 0DB98ZX Excision of Duodenum, Via Natural or Artificial Opening Endoscopic, Diagnostic (ICD-10-PCS; principal; 2017-11-20 08:14)
PROC: 0DJD8ZZ Inspection of Lower Intestinal Tract, Via Natural or Artificial Opening Endoscopic (ICD-10-PCS; 2017-11-20 08:14)
PROC: 0DBE8ZZ Excision of Large Intestine, Via Natural or Artificial Opening Endoscopic (ICD-10-PCS; 2017-11-26)
DX: I13.0 Hypertensive heart and chronic kidney disease with heart failure and stage 1 through stage 4 chronic kidney disease, or unspecified chronic kidney disease (principal); E43 Unspecified severe protein-calorie malnutrition; N17.9 Acute kidney failure, unspecified; I82.411 Acute embolism and thrombosis of right femoral vein; K56.7 Ileus, unspecified; E87.1 Hypo-osmolality and hyponatremia; E83.42 Hypomagnesemia; I50.33 Acute on chronic diastolic (congestive) heart failure; K25.9 Gastric ulcer, unspecified as acute or chronic, without hemorrhage or perforation; N18.9 Chronic kidney disease, unspecified; D72.829 Elevated white blood cell count, unspecified; K44.9 Diaphragmatic hernia without obstruction or gangrene; D50.9 Iron deficiency anemia, unspecified; E87.6 Hypokalemia; I82.431 Acute embolism and thrombosis of right popliteal vein; K57.90 Diverticulosis of intestine, part unspecified, without perforation or abscess without bleeding; M19.90 Unspecified osteoarthritis, unspecified site
CPT/HCPCS: 36415; 71045; 74018; 74176; 74250; 80048; 80053; 80061; 81003; 82248; 82550; 82553; 83540; 83550; 83605; 83690; 83735; 83880; 84100; 84443; 84484; 85025; 85730; 93005; 93306; 93970; 94003; 94150; 99285; J2405; J8499